=== PATIENT | female | born 1940 | race Hispanic/Latino ===

== ENCOUNTER 2016-05-02 21:09 | Inpatient (IN) | payer OTHER, BC ==
[2016-05-02 22:18] VITALS: BMI 21.4
[2016-05-02] MEDS ORDERED: Morphine 2 mg/ml ISec IVP PRN (22:56)
[2016-05-03] MEDS ORDERED: Benzocaine 20% Cream(7 gm) MT PRN
[2016-05-03] MEDS ORDERED: Influenza Vaccine 45 MCG/0.5 ml IM ONE (00:33)
[2016-05-03] MEDS ORDERED: Pneumococcal 23-Valent Vaccine IM ONE (00:33)
[2016-05-03] MEDS ORDERED: cefTRIAXone 1 gm 100 ML IVPB SCH ×2 (06:00→10:00)
[2016-05-03] MEDS: Pantoprazole 40 mg EC Tab PO SCH (06:00)
[2016-05-03 06:32] LABS: HEMATOCRIT 28.9 % (36.0-48.0); MEAN CELL VOLUME 84.8 fL (80.0-105.0); MEAN CORPUSCULAR HEMOGLOBIN 27.9 pg (25.0-35.0); MEAN CORPUSCULAR HGB CONC 32.9 g/dl (31.0-37.0); MEAN PLATELET VOLUME 11.2 fl (7.0-11.0)
[2016-05-03 06:46] LABS: ALB/GLOB RATIO 1.2 (1.1-1.8); ALKALINE PHOSPHATASE 51 U/L (38-133); ALT/SGPT 77 U/L (7-56); AST/SGOT 43 U/L (15-39); BILIRUBIN,TOTAL 0.4 mg/dL (0.2-1.3); BLOOD UREA NITROGEN 15 mg/dL (7-21); CALCIUM 8.1 mg/dL (8.4-10.5); CARBON DIOXIDE 31 mmol/L (21-33); CHLORIDE 104 mmol/L (98-107); GFR AFRICAN-AMERICAN > 60; GLUCOSE,RANDOM 85 mg/dL (70-110); SODIUM 140 mmol/L (132-148); TOTAL PROTEIN 5.5 g/dL (5.8-8.3)
[2016-05-03 06:48] LABS: WHITE BLOOD COUNT 2.1 10^3/ul (4.5-11.0)
[2016-05-03] MEDS ORDERED: Pantoprazole 40 mg EC Tab PO SCH (07:30)
[2016-05-03] MEDS: Potassium & Sodium Phosphate PO SCH ×2 (09:38→18:36)
--- NOTE | 2016-05-03 10:10 | PN ---
DATE: 05/03/2016 Shortly, patient is a 75-year-old female with history of depression and anxiety. Most like ly, patient also has history of bipolar disorder type 2. The patient was admitted on the medical mary jo or for evaluation of altered mental status, most likely delirium stage due to urinary tract infection . Psych consult was called because patient has history of mental illness. The patient is on psychot ropic medication as well as change in mental status. The patient was seen by this typewriter tester for the pas t week. The patient is improving significantly. The patient was transferred to TCU. The patient wa s seen today at the morning time. The patient presented to be alert and oriented. The patient said that she is doing a little bit better. The patient complained of pain in her gums. The patient repo rted that pain affects her mood. At the same time, patient's mental status is improving. The patien t is not having any hallucinations or delusions or any aggressive or agitated behavior. The patient is alert and oriented, pleasant, cooperative. Fair eye contact. Speech was underproductive, low vol ume. Most likely, it is related to the pain in her mouth. The patient reported transient feeling of anxiety. The patient reported to have fair enough sleep at the nighttime. VITAL SIGNS: Reviewed. Temperature 99.4, pulse is , blood pressure 120/72, respirations 18, ox ygen saturation is 92%. MEDICATIONS: Reviewed. The patient is on Xanax 0.5 mg 3 times a day, Orajel, Lotrisone, ciprofloxac in, Duragesic patch, folic acid, Neurontin 300 mg 3 times a day, Paxil 40 mg daily, Neutra-Phos, pred nisone, Seroquel 150 mg at the nighttime, it will be discontinued and Seroquel 200 mg at the nighttim e will be started. MENTAL STATUS EXAMINATION: The patient presented to be alert and oriented. Fair eye contact. Speec h was underproductive, low volume. Mood described as "I'm feeling a little bit better". Affect was constricted, mood congruent. Thought process was coherent, goal directed. Thought content: The pat ient denied visual, auditory, or tactile hallucinations. Denied paranoid ideations. The patient den ied thoughts of harming herself or others, denied intent or plan. Insight and judgment are improving . Impulses are well controlled. IMPRESSION: Most likely, patient has underlying bipolar disorder. The patient has history of anxiet y, depression, history of multiple hospitalizations into the psychiatric inpatient unit in the past. The patient has multiple medical issues, urinary tract infection, multifactorial delirium, which is clearing. PLAN: This typewriter tester had prolonged conversation with Dr. Mi today, discussed treatment plan. The patient might benefit from increased dose of Seroquel at the nighttime, 200 mg will be given as a mo od stabilizer. The rest of the medication needs to be continued. The patient will be seen by Dr. Jarod comer over this weekend. The patient needs to be seen by psychiatrist in the community. This typewriter tester w ill be providing patient information of Dr. Shahid's office. The patient has history of being seen by him in the past or Dr. Tan versus [facility]. This typewriter tester will followup and advise accordingly. Over the weekend, Dr. Paredes will be covering. Meanwhile, continue current shaniqua gement. The patient is improving. Thank you very much for letting me participate in care of your patient. Carrie Patton MD cc: [id number] TT: 05/03/2016 10:09:09 Confirmation # [id number] Dictation # [id number] en
[2016-05-03] MEDS: Clotrimazole/Betamethasone Cream(15 gm) TOP SCH ×2 (15:53→18:34)
[2016-05-04] MEDS: Pantoprazole 40 mg EC Tab PO SCH (05:35)
[2016-05-04 09:26] LABS: HEMATOCRIT 32.9 % (36.0-48.0); MEAN CELL VOLUME 86.1 fL (80.0-105.0); MEAN CORPUSCULAR HEMOGLOBIN 27.7 pg (25.0-35.0); MEAN CORPUSCULAR HGB CONC 32.2 g/dl (31.0-37.0); MEAN PLATELET VOLUME 11.3 fl (7.0-11.0); RED CELL DISTRIBUTION WIDTH 15.9 % (11.5-14.5)
[2016-05-04 09:48] LABS: ALB/GLOB RATIO 1.2 (1.1-1.8); ALKALINE PHOSPHATASE 47 U/L (38-133); ALT/SGPT 63 U/L (7-56); AST/SGOT 38 U/L (15-39); BILIRUBIN,TOTAL 0.6 mg/dL (0.2-1.3); BLOOD UREA NITROGEN 13 mg/dL (7-21); CALCIUM 8.7 mg/dL (8.4-10.5); CARBON DIOXIDE 30 mmol/L (21-33); CHLORIDE 104 mmol/L (98-107); GFR AFRICAN-AMERICAN > 60; GLUCOSE,RANDOM 73 mg/dL (70-110); POTASSIUM 4.3 mmol/L (3.6-5.0); SODIUM 143 mmol/L (132-148); TOTAL PROTEIN 5.9 g/dL (5.8-8.3)
[2016-05-04] MEDS: Clotrimazole/Betamethasone Cream(15 gm) TOP SCH ×2 (09:56→17:45)
[2016-05-04] MEDS: Potassium & Sodium Phosphate PO SCH ×2 (09:57→17:47)
[2016-05-04 10:09] LABS: WHITE BLOOD COUNT 2.5 10^3/ul (4.5-11.0)
--- NOTE | 2016-05-04 10:42 | CON ---
DATE: 05/04/2016 The patient is a 75-year-old female with a history of depression and anxiety, rule out bipo lar disorder type 2, who was being seen by psychiatry because of her history of mental illness as wel l as mental status changes. Dr. Patton has been following up with patient and I have reviewed h er notes which indicates the patient's mental status has been improving significantly as patient is m ore oriented and she is not having hallucinations, delusions or any aggressive or agitated behavior. I met with patient at bedside and I agree with Dr. Patton's observation. The patient is quite alert, oriented, pleasant and cooperative. Her eye contact is fair and while her speech was noted un derproductive yesterday, she is communicative with me today. The patient with almost a bright affect reports that she is feeling "good" and she reports that her mood symptoms are "under control." She reports that she is sleeping well and she denies any issues with her medications. She denies any tutu e effects. As noted, she is quite oriented to current location, circumstances, month and year. Aracely cates that is hopeful and that she "wants to get home." She denies hallucinations. In fact, delusio ns were not elicited from the patient during our interview. Her responses are consistent and relevan t to questioning. Her insight and judgment appear to be improving nicely as well as her impulse cont rol. VITAL SIGNS AND LABORATORIES: Reviewed by this provider. MEDICATIONS: Reviewed AND relevant psychiatric medications include Xanax 0.5 mg p.o. t.i.d., Neuront in 300 mg p.o. t.i.d., Paxil 40 mg p.o. daily and Seroquel 150 mg p.o. at bedtime. IMPRESSION: As noted above, the patient with history of anxiety and depression with rule out bipolar 2 disorder. The patient's multifactorial delirium is improving nicely. RECOMMENDATIONS: The patient is improving and denies any current issues and with notable improved be havior as well as orientation, this provider will not change current medications at this time. There are no acute indications to deal with at this time. The patient also reports that she is tolerating the Seroquel and that she slept well. This medication was supposed to be increased to 200 mg at bed time, however, the patient slept well and appears to be in good control at 150 mg at this time. Appa rently, it was not increased yesterday. We will continue 150 mg at this time. Psychiatry will nupur nue to follow up with patient every other day to monitor her mental status and her tolerance to medic ations; however, please feel free to request a more eminent followup if there are any changes to the patient's functioning regarding to mood and orientation. Garry Paredes MD cc: [id number] TT: 05/04/2016 10:41:26 Confirmation # [id number] Dictation # [id number] tn
--- NOTE | 2016-05-04 16:20 | PN ---
DATE: 05/04/2016 The patient is feeling much better. She has better appetite, her mouth and gums pain improved. She is able to tolerate diet. She denies any diarrhea. PHYSICAL EXAMINATION: VITALS: Stable. Temperature 98.1, pulse 57, blood pressure 122/53, respiratory rate 18. She is comfortable, alert, awake, oriented. HEAD: Normocephalic, atraumatic. Oral mucosa is moist. NECK: Supple. LUNGS: With decreased breath sounds. No rales or crackles. HEART: With regular rhythm and rate. ABDOMEN: Soft, nontender, nondistended. EXTREMITIES: With no edema, but with severe arthritis deformities of both hands. DIAGNOSTIC TESTS: CBC improved with WBC 2.5 trending up, hemoglobin 10.6, hematocrit 32.9, and platelet count 199,000. Chemistry is normal. ASSESSMENT: 1. Urinary tract infection with Escherichia coli in urine culture, improved. 2. Pancytopenia, improved. 3. History of metabolic encephalopathy, resolved. 4. Probably bipolar disorder with anxiety. 5. Rheumatoid arthritis. PLAN OF TREATMENT: The patient will be maintained on present medication. Will finish Cipro at 250 mg twice a day for next 2-3 days. Continue her psychiatric medications, Seroquel and Paxil. Will monitor her CBC for stability of WBC and platelet count. Consuelo Powers MD cc: [id number] TT: 05/04/2016 16:19:58 Confirmation # [id number] Dictation # [id number] jn MTDD
[2016-05-05] MEDS: Pantoprazole 40 mg EC Tab PO SCH (06:12)
[2016-05-05] MEDS: Clotrimazole/Betamethasone Cream(15 gm) TOP SCH ×2 (09:17→17:57)
[2016-05-05] MEDS: Potassium & Sodium Phosphate PO SCH ×2 (09:19→17:59)
--- NOTE | 2016-05-05 13:22 | PN ---
DATE: 05/05/2016 The patient is in transitional care unit. She is feeling much better. She denies any diarrhea or abdominal pain. She continues with some mild discomfort related to her gum disease. PHYSICAL EXAMINATION: VITAL SIGNS: Stable. The patient is afebrile. Temperature 98.8, pulse 60, blood pressure 102/50, respiratory rate 18. GENERAL: She is comfortable in reclining chair, alert, awake, oriented. HEENT: Head is normocephalic, atraumatic. Oral mucosa with some erythema and swelling of the gums. NECK: Supple. LUNGS: Clear to auscultation. HEART: Regular rhythm and rate. ABDOMEN: Soft, nontender, nondistended. EXTREMITIES: With no edema. LABORATORY DATA: The patient had refused blood test this morning. ASSESSMENT: 1. Urinary tract infection with Escherichia coli in urine culture, currently on Cipro to finish treatment for the next 2 days. 2. Pancytopenia, improved. 3. History of metabolic encephalopathy, possibly underlying early dementia, clinically improved. 4. Rheumatoid arthritis. 5. Probably bipolar disorder with anxiety. 6. Deconditioning. PLAN OF TREATMENT: We will continue Cipro for the next 2 days, CBC for tomorrow. Continue physical therapy. Continue close monitoring of patient's condition. Consuelo Powers MD cc: [id number] TT: 05/05/2016 13:22:39 Confirmation # [id number] Dictation # [id number] jn MTDD
[2016-05-06] MEDS: Pantoprazole 40 mg EC Tab PO SCH (05:44)
[2016-05-06 06:53] LABS: HEMATOCRIT 30.7 % (36.0-48.0); MEAN CELL VOLUME 87.2 fL (80.0-105.0); MEAN CORPUSCULAR HEMOGLOBIN 28.4 pg (25.0-35.0); MEAN CORPUSCULAR HGB CONC 32.6 g/dl (31.0-37.0); MEAN PLATELET VOLUME 10.7 fl (7.0-11.0); WHITE BLOOD COUNT 3.7 10^3/ul (4.5-11.0)
--- NOTE | 2016-05-06 08:29 | PN ---
DATE: 05/03/2016 The patient is 75-year-old female who was transferred from regular floor to transitional care unit for further therapy. The patient was admitted at first for altered mental status, multifactorial, with metabolic encephalopathy, acute delirium state from medication overdose. She improved during hospitalization. She was found to have urinary tract infection, treated with IV Rocephin. The patient was transferred to transitional care unit for physical therapy and continuation of IV antibiotic therapy. She is feeling better. She complains of mouth burning and difficulty of chewing, but she denies any abdominal pain or heartburn. She complains of multiple joint pains, and anxiety. She was restarted on her psychiatric medications, which included Paxil and Seroquel. She was found to have a low platelet count and progressive leukopenia during hospitalization. PHYSICAL EXAMINATION: VITALS: Stable. Her temperature was 99.5, pulse 54, blood pressure 125/54, and respiratory rate 20. Her oxygen saturation is 95% on room air. The patient was seen at bedside. She was lying in a reclining chair, alert, awake, oriented. HEAD: Normocephalic, atraumatic. Oral mucosa was slightly dry, erythema of tongue and of throat. No oral thrush. NECK: Supple. LUNGS: Clear to auscultation. HEART: Regular rhythm and rate. ABDOMEN: Soft, nontender, nondistended. EXTREMITIES: With no edema. Multiple degenerative changes of small joints noticed. LABORATORY TESTS: This morning, CBC with leukopenia with WBC 2.1, hemoglobin 9.5, hematocrit 28.9, and platelet count 115,000. Her chemistry showed normal electrolytes with sodium 140, potassium 4. Her renal function study is stabilized with BUN 15, creatinine 0.6. Her bilirubin was normal, but liver enzymes slightly elevated with AST 43 and ALT 77. Her vitamin B12 level is normal. ASSESSMENT: 1. Urinary tract infection with Escherichia coli in urine culture. 2. Diarrhea. Must rule out pseudomembranous colitis. 3. Pancytopenia. 4. Depression with anxiety, possibly bipolar disorder. 5. Rheumatoid arthritis. 6. Oral candidiasis. PLAN OF TREATMENT: Case was discussed with psychiatrist, who helps me to follow the patient in TCU. Will continue current treatment. The patient was maintained on Rocephin for 6 days due to diarrhea. Will stop Rocephin and switched to oral Cipro as instructed by infectious disease specialist. Will obtain consultation with compressor technician due to progressive pancytopenia. However , platelet count improved since we stopped heparin. Will continue Mycelex oral troches for oral candidiasis. We will repeat stool for C. diff to rule out pseudomembranous colitis. Consuelo Powers MD cc: [id number] TT: 05/03/2016 20:40:08 Confirmation # [id number] Dictation # [id number] jn MTDD
[2016-05-06] MEDS: Clotrimazole/Betamethasone Cream(15 gm) TOP SCH ×2 (10:01→18:03)
[2016-05-06] MEDS: Potassium & Sodium Phosphate PO SCH ×2 (10:02→18:04)
[2016-05-06] MEDS ORDERED: Albuterol-Ipratrop 3 mg / 0.5 (3 ml) UD IH PRN (22:32)
--- NOTE | 2016-05-06 23:16 | PN ---
DATE: 05/06/2016 DATE OF SERVICE: 05/06/2016 SUBJECTIVE: The patient remains in transitional care unit. She is feeling much better. She denies any abdominal pain. She engages in her physical therapy. PHYSICAL EXAMINATION: VITAL SIGNS: Stable. Temperature 98.5, pulse 54, blood pressure 114/54 and respiratory rate 18. GENERAL: She is comfortable in bed, alert, awake, oriented. HEENT: Head is normocephalic, atraumatic. Oral mucosa is moist. NECK: Supple. LUNGS: Clear to auscultation. HEART: Regular rhythm and rate. ABDOMEN: Soft, nontender, nondistended. EXTREMITIES: With no edema. DIAGNOSTIC TESTS: CBC this morning showed improved WBC at 3.7. Her hemoglobin is stable at 10, hematocrit 30.7 and platelet count 365,000. Her stool for Clostridium difficile is negative. ASSESSMENT: 1. History of metabolic encephalopathy, clinically resolved. 2. Pancytopenia, improved. 3. History of urinary tract infection, improved. 4. Rheumatoid arthritis. 5. Deconditioning. PLAN OF TREATMENT: We will continue physical therapy and present current medications. We will monitor her electrolytes and CBC. Consuelo Powers MD cc: [id number] TT: 05/06/2016 23:15:40 Confirmation # [id number] Dictation # [id number] tn MTDD
[2016-05-07] MEDS: Pantoprazole 40 mg EC Tab PO SCH (05:55)
[2016-05-07] MEDS: Clotrimazole/Betamethasone Cream(15 gm) TOP SCH ×2 (09:12→18:03)
[2016-05-07] MEDS: Potassium & Sodium Phosphate PO SCH ×2 (09:13→18:05)
[2016-05-07 09:44] LABS: HEMATOCRIT 32.1 % (36.0-48.0); MEAN CORPUSCULAR HEMOGLOBIN 27.9 pg (25.0-35.0); MEAN CORPUSCULAR HGB CONC 32.1 g/dl (31.0-37.0); MEAN PLATELET VOLUME 10.2 fl (7.0-11.0); RED CELL DISTRIBUTION WIDTH 15.8 % (11.5-14.5); WHITE BLOOD COUNT 4.5 10^3/ul (4.5-11.0)
[2016-05-08] MEDS: Pantoprazole 40 mg EC Tab PO SCH (05:36)
[2016-05-08] MEDS ORDERED: Albuterol-Ipratrop 3 mg / 0.5 (3 ml) UD IH STA (08:26)
[2016-05-08] MEDS: Clotrimazole/Betamethasone Cream(15 gm) TOP SCH ×3 (10:00→17:11)
[2016-05-08] MEDS ORDERED: MethylPREDNISolone 40 mg Vial IVP SCH (10:00)
[2016-05-08] MEDS: Potassium & Sodium Phosphate PO SCH ×2 (10:39→17:11)
[2016-05-08] MEDS: MethylPREDNISolone 40 mg Vial IVP SCH ×2 (13:00→22:01)
--- NOTE | 2016-05-08 13:20 | PN ---
DATE: 05/08/2016 The patient remains in transitional care unit. She is complaining of more chest congestion and cough for the past 2 days. She denies any fever. She also has intermittent diarrhea but denies any abdominal pain. Her appetite is good. PHYSICAL EXAMINATION: VITAL SIGNS: Stable. Temperature is 98.4, pulse 64, blood pressure 100/52, respiratory rate 18. Oxygen saturation is 95% on room air. GENERAL: She is comfortable, alert, awake, oriented. HEENT: Head is normocephalic, atraumatic. Eyes with pupils reactive to light. Oral mucosa is moist. There is slight erythema of lower gums. NECK: Supple. LUNGS: With bilateral scattered wheezing. HEART: With regular rhythm and rate. ABDOMEN: Soft, nontender, nondistended. EXTREMITIES: With no edema. LABORATORY DATA: Her last CBC from 05/07 showed improved WBC at 4.5. Hemoglobin 10.3, hematocrit 32.1. ASSESSMENT: 1. History of metabolic encephalopathy, clinically resolved. 2. New exacerbation of chronic obstructive pulmonary disease. 3. History of pancytopenia, improved WBC and stable hemoglobin level. 4. History of urinary tract infection, improved. 5. Rheumatoid arthritis. 6. Deconditioning. PLAN OF TREATMENT: We will continue physical therapy. We will start nebulizer treatment every 6 hours and switch oral prednisone to Solu-Medrol twice a day. Repeat CBC and electrolytes for stability. Consuelo Powers MD cc: [id number] TT: 05/08/2016 13:20:41 Confirmation # [id number] Dictation # [id number] sn MTDD
[2016-05-08] MEDS: Albuterol-Ipratrop 3 mg / 0.5 (3 ml) UD IH SCH ×2 (13:26→20:48)
[2016-05-09] MEDS: Albuterol-Ipratrop 3 mg / 0.5 (3 ml) UD IH SCH ×4 (01:37→21:03)
[2016-05-09] MEDS: Pantoprazole 40 mg EC Tab PO SCH (06:13)
[2016-05-09] MEDS: MethylPREDNISolone 40 mg Vial IVP SCH ×2 (06:25→18:03)
[2016-05-09 07:20] LABS: HEMATOCRIT 31.9 % (36.0-48.0); MEAN CELL VOLUME 86.2 fL (80.0-105.0); MEAN CORPUSCULAR HEMOGLOBIN 27.8 pg (25.0-35.0); MEAN CORPUSCULAR HGB CONC 32.3 g/dl (31.0-37.0); MEAN PLATELET VOLUME 10.1 fl (7.0-11.0); RED CELL DISTRIBUTION WIDTH 16.2 % (11.5-14.5)
[2016-05-09 07:41] LABS: ALB/GLOB RATIO 1.2 (1.1-1.8); ALKALINE PHOSPHATASE 63 U/L (38-133); ALT/SGPT 84 U/L (7-56); AST/SGOT 67 U/L (15-39); BILIRUBIN,TOTAL 0.3 mg/dL (0.2-1.3); BLOOD UREA NITROGEN 20 mg/dL (7-21); CALCIUM 8.4 mg/dL (8.4-10.5); CARBON DIOXIDE 29 mmol/L (21-33); CHLORIDE 99 mmol/L (95-110); GFR AFRICAN-AMERICAN > 60; GLUCOSE,RANDOM 130 mg/dL (70-110); POTASSIUM 4.7 mmol/L (3.6-5.0); SODIUM 135 mmol/L (132-148); TOTAL PROTEIN 6.4 g/dL (5.8-8.3)
--- NOTE | 2016-05-09 09:58 | PN ---
DATE: 05/09/2016 The patient remains in transitional care unit undergoing physical therapy for deconditioning. The patient developed cough and chest congestion 2 days ago. She had fever yesterday with T-max 102. She is feeling better today. She is afebrile this morning. She states that her cough improved. She denies any shortness of breath. She still has loose stool. Two sets of stool for Clostridium difficile test were negative. PHYSICAL EXAMINATION: This morning: VITAL SIGNS: Temperature 98.7, her blood pressure 95/51, pulse 79, and respiratory rate 18. GENERAL: She is comfortable in bed, alert, awake, oriented. HEENT: Head is normocephalic, atraumatic. Oral mucosa is moist. NECK: Supple. LUNGS: With scattered wheezing, improved since yesterday. HEART: Regular rhythm and rate. ABDOMEN: Soft, nontender, nondistended. EXTREMITIES: With no edema. DIAGNOSTIC TESTS: CBC with WBC 5, hemoglobin 10.3 stable, hematocrit 31.9, and platelet count ____. Chemistry with normal electrolytes, normal renal function with BUN 20, creatinine 0.7. Her liver enzymes are slightly elevated. AST 67, ALT 84. ASSESSMENT: 1. Cough, fever, probably secondary to exacerbation of chronic obstructive pulmonary disease. Must rule out pneumonia. 2. Persistent diarrhea with negative Clostridium difficile and stools x 2. 3. Elevated liver enzymes. 4. Anemia of chronic disease. 5. Rheumatoid arthritis. 6. Deconditioning. PLAN OF TREATMENT: Will order a chest x-ray for evaluation to rule out any signs of new infiltration. We will start Levaquin 500 mg daily. Will continue Solu-Medrol and nebulizer treatment. I will ask infectious disease specialist in consult for help to find the source of the recent fever. The patient will be maintained on her chronic medications. We will monitor her WBC and H and H. We will continue physical therapy. Consuelo Powers MD cc: [id number] TT: 05/09/2016 09:58:05 Confirmation # [id number] Dictation # [id number] yeison ABRAMS
[2016-05-09] MEDS: Vancomycin 1gm in NS 250ml 250 ML IVPB SCH ×2 (10:35→21:35)
[2016-05-09] MEDS: levoFLOXacin 500 MG TAB PO SCH (10:35)
[2016-05-09] MEDS: Meropenem 1 GM in Sodium Chloride 0.9% 100 ML IVPB SCH ×3 (10:37→21:32)
[2016-05-09] MEDS: Clotrimazole/Betamethasone Cream(15 gm) TOP SCH ×2 (10:38→18:02)
[2016-05-09] MEDS: Potassium & Sodium Phosphate PO SCH ×2 (10:47→18:03)
--- NOTE | 2016-05-09 12:01 | PN ---
DATE: 05/09/2016 The patient is a 75-year-old female with history of depression, anxiety, most likely the pa brigette also has history of bipolar type 2. The patient was admitted on the medical floor for evaluati on of altered mental status. Right now, patient is currently in TCU. This telegraphic typewriter repairer increased the dose of Seroquel for mood stabilization as well as to clear delirium. All medications were resumed. The patient has not followed up for the past 4 days because of increased consultation and busy services, but this telegraphic typewriter repairer had prolonged conversation with Dr. Mi today. The patient is improving from t he mental standpoint, but she has a lot of medical issues as well. The patient was seen and examined . The patient presented to be alert. The patient said that she is not depressed. The patient repor urbano to have a good night's sleep. At the same time, the patient has diarrhea and has a lot of medica l issues. Discussed with the nursing staff. The patient does not have any behavioral issues, compli ant with the medications and treatment plan. The patient was working with physical therapy as well. VITAL SIGNS: Reviewed. Temperature is 98.7, pulse is 63, blood pressure 98/56, respirations 20, oxy gen saturation 94. MEDICATIONS: Reviewed. Tylenol, DuoNeb, Xanax 0.5 mg 3 times a day. Also, the patient is on Paxil 40 mg daily as well as Seroquel 150 mg at the nighttime scheduled. The patient is also on antibiotic s and multiple medical medications. Please see medical team notes for more detailed history. LABORATORY DATA: Reviewed. Most recent was from today. Hemoglobin and hematocrit are low. Salon Manager ry also reviewed. AST and ALT are 67 and 84. The rest is within normal limits. Reports were review ed. Chest x-ray was done. There is no result back yet. MENTAL STATUS EXAMINATION: The patient appears to be alert and oriented. Delirium was clearing. Int ermittent eye contact. Speech was underproductive. Mood described as "I'm okay." Affect was constr icted, mood congruent. Thought process was coherent and goal directed. Thought content: The patien t denied visual, auditory, or tactile hallucinations. Denied paranoid ideation. Denied thoughts of harming herself or others, denied intent or plan. Insight and judgment are improving. Impulses are well controlled. IMPRESSION: From this telegraphic typewriter repairer's standpoint, the patient was admitted for altered mental status, which could be related to multifactorial delirium and it is clearing. The patient also has underlying bip olar disorder versus depression and anxiety. From the medical standpoint, the patient has multiple m edical issues including cough, COPD, rule out pneumonia. The patient has diarrhea, negative C. diff. The patient has elevated liver enzymes and anemia, rebound with arthritis, deconditioning. The pat ient is on antibiotics now. Please see Dr. Mi's note for more detailed information. PLAN: Continue current management. Continue Paxil, continue Xanax, and continue on Seroquel on curr ent doses. The patient was educated that she needs to follow up with outpatient psychiatrist. [facility] Meanwhile, the patient is improving from the mental standpoi nt. From the medical standpoint, she is on TCU and she is having physical therapy and she is on anti biotics. This telegraphic typewriter repairer will sign off. It was advised to the medical team to give a call to this write r in case mental status will be worsening or in case of depression or in case of suicidal ideation. Thank you very much for letting me participate in care of your patient. Carrie Patton MD cc: [id number] TT: 05/09/2016 12:00:23 Confirmation # [id number] Dictation # [id number] yeison
--- NOTE | 2016-05-09 15:34 | RAD ---
PROCEDURE: CHEST RADIOGRAPH, 1 VIEW HISTORY: fever COMPARISON: 04/27/2016 FINDINGS: LUNGS: No pulmonary infiltrate. 1.4 cm nodular opacity at left lung base. Recommend upright PA and lateral chest radiography for further evaluation. PLEURA: No pneumothorax or pleural fluid seen. CARDIOVASCULAR: Normal. OSSEOUS STRUCTURES: No significant abnormalities. VISUALIZED UPPER ABDOMEN: Normal. OTHER FINDINGS: None. IMPRESSION: 1.4 cm nodular opacity at left base. Further evaluation is advised. Recommend standing PA and lateral chest radiography if clinically feasible. Alternatively, evaluation with computed tomography would be recommended.
--- NOTE | 2016-05-09 16:59 | CP.PCM.CON ---
History of Present Illness - History of Present Illness History of Present Illness: 75 year old female with PMH of bilateral hospital-acquired pneumonia, Rheumatoid arthritis on Humira and Methotrexate, COPD, depression, anxiety, coronary artery disease was initially admitted in [facility] because of E. coli UTI. She has been transferred to [facility] for continued medical therapy and physical rehabilitation. She had been doing well, however, she developed fever last night while doing physical therapy. She felt warm but did not have chills or rigors. She denies cough or rhinorrhea, no sore throat, no leg pain, no dysuria or hematuria, no chest pain, no headache or dizziness, no abdominal pain, no dysphagia or odynophagia, no chest palpitations, no abodminal cramps. Infectious diseases consult is requested to further evaluate and manage. Review of Systems - Review of Systems All systems: reviewed and no additional remarkable complaints except (as per HPI ) Past Patient History - Infectious Disease Hx of Infectious Diseases: None - Tetanus Immunizations Tetanus Immunization: Unknown - Past Medical History & Family History Past Medical History?: Yes Past Family History: Reviewed and not pertinent - Past Social History Smoking Status: Heavy Smoker > 10 Cigarettes Daily Alcohol: None Drugs: Denies Home Situation {Lives}: With Family - CARDIAC Hx Hypertension: No - PULMONARY Hx Chronic Obstructive Pulmonary Disease (COPD): Yes - NEUROLOGICAL HX Cerebrovascular Accident: No Hx Seizures: No - HEENT Hx HEENT Problems: No - RENAL Hx Chronic Kidney Disease: No - ENDOCRINE/METABOLIC Hx Endocrine Disorders: No - HEMATOLOGICAL/ONCOLOGICAL Hx Cancer: No - INTEGUMENTARY Hx Dermatological Problems: No - MUSCULOSKELETAL/RHEUMATOLOGICAL Hx Arthritis: Yes (Hip OA) Hx Rheumatoid Arthritis: Yes - GASTROINTESTINAL Hx Gastrointestinal Disorders: Yes (CONSTIPATION,DIARRHEA COLON POLYPS) - GENITOURINARY/GYNECOLOGICAL Hx Genitourinary Disorders: Yes (UTI,URINARY FREQUENCY) Hx Reproductive Disorders: No - PSYCHIATRIC Hx Psychophysiologic Disorder: Yes Hx Anxiety: Yes Hx Depression: Yes Hx Emotional Abuse: No Hx Hallucinations: No Hx Panic Symptoms: No Hx Post Traumatic Stress Disorder: No Hx Psychosis: No Hx Physical Abuse: No Hx Schizophrenia: No Hx Sexual Abuse: No Hx Substance Use: No - SURGICAL HISTORY Hx Orthopedic Surgery: Yes (TOTAL HIP REPLACEMENT right 2010 [facility]) - ANESTHESIA Hx Anesthesia: Yes Hx Anesthesia Reactions: No Hx Malignant Hyperthermia: No Meds Allergies/Adverse Reactions: Allergies Allergy/AdvReac Type Severity Reaction Status Date / Time codeine Allergy ANAPHYLAXIS Verified 05/03/16 00:22 - Medications Medications: Current Medications Acetaminophen (Tylenol 325mg Tab) 650 mg PO Q4H PRN PRN Reason: Fever >100.4 F Last Admin: 05/08/16 14:31 Dose: 650 mg Albuterol/Ipratropium (Duoneb 3 Mg/0.5 Mg (3 Ml) Ud) 3 ml IH [id number] [facility], 1928–1983 Last Admin: 05/09/16 07:21 Dose: 3 ml Alprazolam (Xanax) 0.5 mg PO TID [facility], [facility] PRN Reason: Protocol Last Admin: 05/08/16 18:32 Dose: 0.5 mg Benzocaine (Orajel Pm Maximum Strength) 0 gm MT Q2 PRN PRN Reason: Pain, moderate (4-7) Betamethasone/Clotrimazole (Lotrisone) 1 gm TOP BID [facility], [facility] Last Admin: 05/08/16 17:11 Dose: 1 applic Clotrimazole (Mycelex Kevon) 10 mg MT 5XD [facility], [facility] Last Admin: 05/09/16 06:13 Dose: 10 mg Fentanyl (Duragesic) 1 patch TD Q72H [facility], [facility] Last Admin: 05/06/16 22:26 Dose: 1 patch Folic Acid (Folic Acid) 1 mg PO DAILY [facility], [facility] Last Admin: 05/08/16 10:38 Dose: 1 mg Gabapentin (Neurontin) 300 mg PO TID [facility], [facility]1983 PRN Reason: Protocol Last Admin: 05/08/16 17:11 Dose: 300 mg Levofloxacin (Levaquin) 500 mg PO DAILY [facility] Methylprednisolone (Solu-Medrol) 30 mg IVP 0600,1800 [facility], [facility] Last Admin: 05/09/16 06:25 Dose: 30 mg Pantoprazole Sodium (Protonix Ec Tab) 40 mg PO 0630 [facility] Last Admin: 05/09/16 06:13 Dose: 40 mg Paroxetine HCl (Paxil) 40 mg PO DAILY [facility] Last Admin: 05/08/16 10:39 Dose: 40 mg Potassium Phos/Sodium Phos (Neutra-Phos) 1 pkt PO BID [facility], [facility] Last Admin: 05/08/16 17:11 Dose: 1 pkt Quetiapine Fumarate (Seroquel) 150 mg PO HS [facility] PRN Reason: Protocol Last Admin: 05/08/16 21:18 Dose: 150 mg Physical Exam - Constitutional Appears: Non-toxic, No Acute Distress - Head Exam Head Exam: NORMAL INSPECTION - ENT Exam ENT Exam: Mucous Membranes Moist - Neck Exam Neck exam: Negative for: Lymphadenopathy, Meningismus - Respiratory Exam Respiratory Exam: Decreased Breath Sounds - Cardiovascular Exam Cardiovascular Exam: +S1, +S2 - GI/Abdominal Exam GI & Abdominal Exam: Soft. absent: Tenderness - Extremities Exam Extremities exam: Negative for: calf tenderness, pedal edema, tenderness Results - Vital Signs Recent Vital Signs: Last Vital Signs Temp 98.7 F 05/08/16 18:37 Pulse 79 05/08/16 15:58 Resp 18 05/08/16 15:58 BP 95/51 L 05/08/16 15:58 Pulse Ox 94 L 05/08/16 15:58 - Labs Result Diagrams: 05/09/16 06:30 05/09/16 06:30 Labs: Laboratory Results - last 24 hr 05/09/16 06:30 WBC 5.0 RBC 3.70 Hgb 10.3 L Hct 31.9 L MCV 86.2 MCH 27.8 MCHC 32.3 RDW 16.2 H Plt Count 674 H MPV 10.1 Sodium 135 Potassium 4.7 Chloride 99 Carbon Dioxide 29 Anion Gap 12 BUN 20 Creatinine 0.7 Est GFR ( Amer) > 60 Est GFR (Non-Af Amer) > 60 Random Glucose 130 H Calcium 8.4 Total Bilirubin 0.3 AST 67 H ALT 84 H Alkaline Phosphatase 63 Total Protein 6.4 Albumin 3.5 Globulin 2.9 Albumin/Globulin Ratio 1.2 Assessment & Plan - Assessment and Plan (Free Text) Plan: Assessment Systemic Inflammatory Response Syndrome, R/O sepsis, source to be determined urinary tract infection with E. coli, clinically improving Acute encephalopathy, resolved, probably from withdrawal from pain meds, clinically improved; the patient currently does not have evidence of sepsis (no fever, no WBC elevation, no SIRS) history of bilateral hospital-acquired pneumonia Rheumatoid arthritis on Humira and Methotrexate COPD depression anxiety coronary artery disease Plan changed antibiotics to Vancomycin and Merrem pending blood, urine cx, CXR, PCT Will continue to monitor clinically and trend fever curve
[2016-05-09 21:08] LABS: URINE BILIRUBIN NEGATIVE (NEGATIVE); URINE BLOOD TRACE-INTACT (NEGATIVE); URINE GLUCOSE (UA) NEGATIVE (NEGATIVE); URINE KETONE TRACE mg/dL (NEGATIVE); URINE LEUKOCYTE ESTERASE NEGATIVE Leu/uL (NEGATIVE); URINE PROTEIN NEGATIVE mg/dL (<30 mg/dL); URINE UROBILINOGEN 0.2 E.U./dL (<1 E.U./dL)
[2016-05-09 21:11] LABS: URINE APPEARANCE CLEAR (CLEAR); URINE COLOR YELLOW (YELLOW)
[2016-05-09 21:18] LABS: URINE BACTERIA FEW (NEG); URINE WBC 0 - 2 /hpf (0-6)
[2016-05-10] MEDS: Albuterol-Ipratrop 3 mg / 0.5 (3 ml) UD IH SCH ×4 (02:38→20:25)
[2016-05-10] MEDS: Meropenem 1 GM in Sodium Chloride 0.9% 100 ML IVPB SCH ×3 (05:54→22:17)
[2016-05-10] MEDS: Pantoprazole 40 mg EC Tab PO SCH (05:56)
[2016-05-10] MEDS: Vancomycin 1gm in NS 250ml 250 ML IVPB SCH ×2 (05:56→17:44)
[2016-05-10] MEDS: MethylPREDNISolone 40 mg Vial IVP SCH ×2 (06:01→17:42)
[2016-05-10 07:14] LABS: MEAN CELL VOLUME 86.7 fL (80.0-105.0); MEAN CORPUSCULAR HEMOGLOBIN 28.3 pg (25.0-35.0); MEAN CORPUSCULAR HGB CONC 32.7 g/dl (31.0-37.0); MEAN PLATELET VOLUME 10.2 fl (7.0-11.0); RED CELL DISTRIBUTION WIDTH 16.5 % (11.5-14.5); WHITE BLOOD COUNT 11.8 10^3/ul (4.5-11.0)
[2016-05-10 07:31] LABS: ALB/GLOB RATIO 1.2 (1.1-1.8); ALKALINE PHOSPHATASE 54 U/L (38-133); ALT/SGPT 74 U/L (7-56); AST/SGOT 55 U/L (15-39); BILIRUBIN,TOTAL 0.3 mg/dL (0.2-1.3); BLOOD UREA NITROGEN 19 mg/dL (7-21); CALCIUM 8.1 mg/dL (8.4-10.5); CARBON DIOXIDE 30 mmol/L (21-33); CHLORIDE 103 mmol/L (98-107); GFR AFRICAN-AMERICAN > 60; GLUCOSE,RANDOM 111 mg/dL (70-110); POTASSIUM 4.6 mmol/L (3.6-5.0); SODIUM 139 mmol/L (132-148); TOTAL PROTEIN 6.3 g/dL (5.8-8.3)
[2016-05-10] MEDS: levoFLOXacin 500 MG TAB PO SCH (10:10)
[2016-05-10] MEDS: Clotrimazole/Betamethasone Cream(15 gm) TOP SCH ×2 (10:11→17:40)
[2016-05-10] MEDS: Potassium & Sodium Phosphate PO SCH ×2 (10:12→17:41)
--- NOTE | 2016-05-10 19:03 | PN ---
DATE: 05/10/2016 SUBJECTIVE: The patient remains in TCU. The patient developed a fever 3 days ago associated with chest congestion and cough. She is treated with vancomycin and Merrem. Today she is doing much better. She denies any chest congestion, cough, abdominal pain. Her bowel movement improved. She denies significant diarrhea. PHYSICAL EXAMINATION: VITAL SIGNS: Stable. Temperature is 98.6, blood pressure 118/58, pulse 63 and respiratory rate 18. Her oxygen saturation runs in lower 90s. GENERAL: She is comfortable, sitting in the chair, alert, awake, oriented. HEENT: Head is normocephalic, atraumatic. Oral mucosa is moist. NECK: Supple. LUNGS: Clear to auscultation. HEART: Regular rhythm and rate. ABDOMEN: Soft, nontender, nondistended. EXTREMITIES: With no edema. LABORATORY DATA: Blood cultures preliminary after 24 hours are negative. Stool culture is negative for C. diff antigen and toxin. Chest x-ray done yesterday showed 1.4 cm opacity in the left base, but no significant infiltrations. ASSESSMENT: 1. History of fever with exacerbation of chronic obstructive pulmonary disease. Chest x-ray negative for pneumonia. 2. Elevated liver enzymes. 3. Chronic anemia due to chronic disease with thrombocytosis, probably reactive. 4. Rheumatoid arthritis. 5. Deconditioning. 6. History of metabolic encephalopathy completely resolved. 7. Bipolar disorder. PLAN OF TREATMENT: She will be maintained on IV Merrem and vancomycin for next 24 hours. We will consider changing to p.o. antibiotics if ID specialist agrees. We will monitor closely for any increase of temperature. We will follow blood cultures and urine cultures. The patient will continue physical therapy. I will decrease Solu-Medrol dose and bronchodilators dose. Consuelo Powers MD cc: [id number] TT: 05/10/2016 19:02:50 Confirmation # [id number] Dictation # [id number] MTDD
--- NOTE | 2016-05-10 19:25 | CP.PCM.PN ---
Subjective - Date & Time of Evaluation Date of Evaluation: 05/10/16 Time of Evaluation: 10:40 - Subjective Subjective: Comfortable in bed, not in distress, no fevers currently, no cough, no dysuria, no diarrhea. Objective - Vital Signs/Intake and Output Vital Signs (last 24 hours): Temp Pulse Resp BP Pulse Ox 98.2 F 66 18 100/47 L 93 L 05/09/16 16:00 05/09/16 16:00 05/09/16 16:00 05/09/16 16:00 05/09/16 16:00 - Medications Medications: Current Medications Acetaminophen (Tylenol 325mg Tab) 650 mg PO Q4H PRN PRN Reason: Fever >100.4 F Last Admin: 05/08/16 14:31 Dose: 650 mg Albuterol/Ipratropium (Duoneb 3 Mg/0.5 Mg (3 Ml) Ud) 3 ml IH [id number] [facility] Last Admin: 05/10/16 07:27 Dose: 3 ml Alprazolam (Xanax) 0.5 mg PO TID RENE PRN Reason: Protocol Last Admin: 05/09/16 18:10 Dose: 0.5 mg Benzocaine (Orajel Pm Maximum Strength) 0 gm MT Q2 PRN PRN Reason: Pain, moderate (4-7) Betamethasone/Clotrimazole (Lotrisone) 1 gm TOP BID [facility] Last Admin: 05/09/16 18:02 Dose: Not Given Clotrimazole (Mycelex Kevon) 10 mg MT 5XD [facility] Last Admin: 05/10/16 05:55 Dose: 10 mg Folic Acid (Folic Acid) 1 mg PO DAILY [facility] Last Admin: 05/09/16 10:38 Dose: 1 mg Gabapentin (Neurontin) 300 mg PO TID RENE PRN Reason: Protocol Last Admin: 05/09/16 18:03 Dose: 300 mg Meropenem 1 gm/ Sodium (Chloride) 100 mls @ 100 mls/hr IVPB Q8 RENE PRN Reason: Protocol Stop: 05/16/16 09:46 Last Admin: 05/10/16 05:54 Dose: 100 mls/hr Vancomycin HCl (Vancomycin 1gm) 250 mls @ 167 mls/hr IVPB 0600,1800 RENE PRN Reason: Protocol Last Admin: 05/10/16 05:56 Dose: 167 mls/hr Levofloxacin (Levaquin) 500 mg PO DAILY [facility] Last Admin: 05/09/16 10:35 Dose: 500 mg Methylprednisolone (Solu-Medrol) 30 mg IVP 0600,1800 [facility] Last Admin: 05/10/16 06:01 Dose: 30 mg Pantoprazole Sodium (Protonix Ec Tab) 40 mg PO 0630 [facility] Last Admin: 05/10/16 05:56 Dose: 40 mg Paroxetine HCl (Paxil) 40 mg PO DAILY [facility] Last Admin: 05/09/16 10:36 Dose: 40 mg Potassium Phos/Sodium Phos (Neutra-Phos) 1 pkt PO BID [facility] Last Admin: 05/09/16 18:03 Dose: 1 pkt Quetiapine Fumarate (Seroquel) 150 mg PO HS [facility] PRN Reason: Protocol Last Admin: 05/09/16 21:33 Dose: 150 mg - Labs Labs: 05/10/16 06:30 05/10/16 06:30 - Constitutional Appears: Non-toxic, No Acute Distress - Head Exam Head Exam: NORMAL INSPECTION - ENT Exam ENT Exam: Mucous Membranes Moist - Neck Exam Neck Exam: absent: Lymphadenopathy, Meningismus - Respiratory Exam Respiratory Exam: Decreased Breath Sounds - Cardiovascular Exam Cardiovascular Exam: +S1, +S2 - GI/Abdominal Exam GI & Abdominal Exam: Soft. absent: Tenderness Assessment and Plan - Assessment and Plan (Free Text) Plan: Assessment Systemic Inflammatory Response Syndrome, R/O sepsis, so far no source identified ; patient with COPD exacerbation urinary tract infection with E. coli, clinically improving Acute encephalopathy, resolved, probably from withdrawal from pain meds, clinically improved; the patient currently does not have evidence of sepsis (no fever, no WBC elevation, no SIRS) history of bilateral hospital-acquired pneumonia Rheumatoid arthritis on Humira and Methotrexate COPD depression anxiety coronary artery disease Plan blood cx negative - will d/c IV Vancomycin; will continue Merrem (day 2) pending final blood cx results and urine cx; reviewed CXR which showed a pulmonary nodule but no infiltrates; if cultures continue to be negative tomorrow, will d/c antibiotics Will continue to monitor clinically
[2016-05-11] MEDS: MethylPREDNISolone 40 mg Vial IVP SCH ×2 (05:50→17:30)
[2016-05-11] MEDS: Meropenem 1 GM in Sodium Chloride 0.9% 100 ML IVPB SCH (05:50)
[2016-05-11] MEDS: Pantoprazole 40 mg EC Tab PO SCH (05:52)
[2016-05-11 06:39] LABS: HEMATOCRIT 30.8 % (36.0-48.0); MEAN CELL VOLUME 87.3 fL (80.0-105.0); MEAN CORPUSCULAR HGB CONC 32.1 g/dl (31.0-37.0); MEAN PLATELET VOLUME 10.4 fl (7.0-11.0); RED CELL DISTRIBUTION WIDTH 16.6 % (11.5-14.5); WHITE BLOOD COUNT 15.5 10^3/ul (4.5-11.0)
[2016-05-11 07:14] LABS: ALB/GLOB RATIO 1.1 (1.1-1.8); ALKALINE PHOSPHATASE 54 U/L (38-133); ALT/SGPT 68 U/L (7-56); AST/SGOT 64 U/L (15-39); BILIRUBIN,TOTAL 0.3 mg/dL (0.2-1.3); BLOOD UREA NITROGEN 21 mg/dL (7-21); CALCIUM 8.3 mg/dL (8.4-10.5); CARBON DIOXIDE 31 mmol/L (21-33); CHLORIDE 103 mmol/L (98-107); GFR AFRICAN-AMERICAN > 60; GLUCOSE,RANDOM 102 mg/dL (70-110); POTASSIUM 4.2 mmol/L (3.6-5.0); SODIUM 139 mmol/L (132-148); TOTAL PROTEIN 6.1 g/dL (5.8-8.3)
[2016-05-11] MEDS: Albuterol-Ipratrop 3 mg / 0.5 (3 ml) UD IH SCH ×3 (07:15→23:47)
[2016-05-11] MEDS: Clotrimazole/Betamethasone Cream(15 gm) TOP SCH ×2 (11:02→17:29)
[2016-05-11] MEDS: Potassium & Sodium Phosphate PO SCH ×2 (11:03→17:30)
--- NOTE | 2016-05-11 11:07 | PN ---
DATE: 05/11/2016 The patient is in bed, was seen earlier today, in 313. No fevers, no chills. An uneventful night. PHYSICAL EXAMINATION: VITAL SIGNS: Temperature is 98, blood pressure is 123/50, respiratory rate of 18. HEENT: Unremarkable. NECK: Supple. LUNGS: Have decreased breath sounds. HEART: Normal S1, S2. ABDOMEN: Soft, nontender. LABORATORY DATA: The patient's platelets have gone up to 900,000 and the white count is 15,000. Lou mistries reveal the BUN of 21, creatinine of 0.8, procalcitonin 0.05. Her urinalysis as noted. Micr obiology reveals the blood cultures are no growth. Stool C. diff antigen and toxin negative and urin e cultures are no growth. Review of the orders reveals the patient to be on meropenem and patient is also on Solu-Medrol. ASSESSMENT AND PLAN: A 75-year-old female, seen earlier today in transitional care, in room 313, wit h systemic inflammatory response syndrome with chronic obstructive pulmonary disease, urinary tract i nfection, Escherichia coli improving, and cultures negative. We will discontinue the meropenem. Paul e discussed with Dr. Martinez regarding the high platelets, thrombocytosis. Hematology evaluation and GI evaluation are recommended. Chai Acosta MD cc: [id number] TT: 05/11/2016 11:06:34 Confirmation # [id number] Dictation # [id number] ln
--- NOTE | 2016-05-11 11:21 | CON ---
DATE: 05/11/2016 LOCATION: Currently located in TCU 313, bed 2. REASON FOR HEMATOLOGY CONSULTATION: Leukocytosis, thrombocytosis. HISTORY: This is a 75-year-old female with past medical history significant for bilateral healthcare -acquired pneumonia, rheumatoid arthritis, on Humira and methotrexate, COPD, depression, anxiety, cor onary artery disease; who was initially admitted to [facility] because of Escherichia col i urinary tract infection. She has been since treated and transferred to [email or web address] for continued medical therapy and physical rehabilitation. She had been doing well overall; however, developed overnight a fever, on 05/01/2016, while doing physical therapy. She denied complaints, at that time, of chills or rigors or other complaints related to her urinary tract infection, including dysuria or hematuria. She also denied dizziness, chest pain, or trouble breathing. She was restarted on antibiotic therapy consisting of vancomycin and meropenem, pending her Infectious Disease workup, and states that, sinc e that time, her symptoms related to her urinary tract infection have been improving. She has remain ed afebrile with a T-max of 102.4, which was documented on 05/08/2016. Currently, her white blood vitaliy l count has increased to 15.5 with a platelet count of 798,000, hemoglobin is at 9.9, hematocrit is 3 0.8. Initially, on presentation, she did have a leukopenia. White blood cell count was 2.1 and plat elet count was 115,000. Otherwise, no complaints. She denies complaints of bruising or spontaneous bleeding. PAST MEDICAL HISTORY: As per HPI. SOCIAL HISTORY: Current tobacco smoker. Denies alcohol or drugs. SURGICAL HISTORY: History of total hip replacement in 2010. ALLERGIES: THE PATIENT IS ALLERGIC TO CODEINE WITH A DOCUMENTED REACTION OF ANAPHYLAXIS. REVIEW OF SYSTEMS: As per HPI. PHYSICAL EXAMINATION: VITAL SIGNS: Temperature 98.6 currently, blood pressure 111/58, respiratory rate 18, heart rate 75. GENERAL: AAO x 3, currently resting in bed comfortably. HEENT: Normocephalic, atraumatic. Pupils reactive bilaterally. LUNGS: Clear to auscultation bilaterally. CARDIOVASCULAR: Regular rate and rhythm. S1, S2 normal. ABDOMEN: Soft, nontender, nondistended. No evidence of abdominal or epigastric pain. EXTREMITIES: No cyanosis, clubbing, or edema. SKIN: Multiple ecchymotic lesions noted to bilateral upper extremities at areas of phlebotomy and IV placement. Otherwise, there is no evidence of ecchymosis on skin elsewhere. LYMPHATICS: Exam is normal. No evidence of lymphadenopathy. LABORATORY DATA: White blood cell count of 15.5, hemoglobin 9.9, hematocrit 30.8, MCV 87.3, platelet count 798. Chemistries: Sodium 139, potassium 4.2, chloride 103, bicarbonate 31, BUN 21, creatinin e 0.8, glucose 102, calcium 8.3, AST 64, ALT 68, total bilirubin 0.3, albumin 3.2. ASSESSMENT AND PLAN: In summary, this is a 75-year-old female with multiple medical comorbidities, w ith the current admission of Escherichia coli urinary tract infection/urosepsis, currently on IV anti biotic therapy and responding well. Most recently had a fever, on 05/08, and has been treated approp riately without documented evidence of fever, and clinically and symptomatically improving. Hematology consultation was placed for leukocytosis as well as thrombocytosis. Looking at her trend during her admission to this documented increase in her white blood cell count and platelet count, mo st likely etiology is a reactive/inflammatory/infectious process causing a leukocytosis and thrombocy tosis. The patient does not have a history of this previously and there is no history of familial bl ood disorders as well. I have sent for appropriate testing in this setting, due to elevated platelet count; including peripheral flow cytometry as well as ESR and CRP, which most likely will be elevate d. Based on these results, a JAK2 mutation could be checked to rule out a primary bone marrow proce ss, such as essential thrombocytosis; however, this is very low suspicion at this time. We will cont inue to monitor and follow this patient with you. Thank you kindly for this consultation. Dimitry Minor MD cc: [id number] TT: 05/11/2016 11:20:23 Confirmation # [id number] Dictation # [id number] ln
[2016-05-11 12:49] LABS: IRON 114 ug/dL (45-180)
[2016-05-12] MEDS: MethylPREDNISolone 40 mg Vial IVP SCH ×2 (05:33→17:36)
[2016-05-12] MEDS: Pantoprazole 40 mg EC Tab PO SCH (05:33)
[2016-05-12] MEDS: Albuterol-Ipratrop 3 mg / 0.5 (3 ml) UD IH SCH ×4 (08:02→18:26)
[2016-05-12 09:23] LABS: ADD MANUAL DIFF? NO
[2016-05-12 09:26] LABS: BASO # 0.34 K/mm3 (0.0-2.0); BASO % 2.1 % (0.0-3.0); EOS % 0.1 % (1.5-5.0); GRAN # 8.64 (1.4-6.5); GRAN % 52.6 % (50.0-68.0); HEMATOCRIT 31.6 % (36.0-48.0); LYMPH # 4.6 (1.2-3.4); LYMPH % 28.2 % (22.0-35.0); MEAN CELL VOLUME 87.3 fL (80.0-105.0); MEAN CORPUSCULAR HEMOGLOBIN 28.5 pg (25.0-35.0); MEAN CORPUSCULAR HGB CONC 32.6 g/dl (31.0-37.0); MEAN PLATELET VOLUME 10.3 fl (7.0-11.0); MONO # 2.8 (0.1-0.6); PLATELET COUNT 838 10^3/uL (120.0-450.0); RED CELL DISTRIBUTION WIDTH 16.3 % (11.5-14.5); WHITE BLOOD COUNT 16.4 10^3/ul (4.5-11.0)
[2016-05-12] MEDS: Clotrimazole/Betamethasone Cream(15 gm) TOP SCH ×2 (09:39→17:34)
[2016-05-12] MEDS: Potassium & Sodium Phosphate PO SCH ×2 (09:40→17:36)
--- NOTE | 2016-05-12 12:54 | PN ---
DATE: 05/12/2016 The patient is in bed in no acute distress, nontoxic. PHYSICAL EXAMINATION: VITAL SIGNS: Temperature is 98, blood pressure is 130/70, respiratory rate of 20. HEENT: Unremarkable. NECK: Supple. LUNGS: Have decreased breath sounds. HEART: Normal S1, S2. ABDOMEN: Soft, nontender. LABORATORY DATA: Reveals a white count of 16,400, hemoglobin is 10, platelets of 838. Chemistries a re noted. Procalcitonin was 0.05. Urinalysis is noted. Microbiology reveals the blood cultures are negative. Urine cultures are negative. Stool for C. diff antigen and toxin are both negative. Rev iew of the orders reveals the patient to have no antibiotics. ASSESSMENT AND PLAN: A 75-year-old female who was seen earlier today in room 313 with systemic infla mmatory response syndrome, chronic obstructive lung disease, urinary tract infection with Escherichia coli, culture is negative, now off of antibiotics. The patient does have thrombocytosis with the la st platelets of 838,000 this morning. Awaiting for GI and workup because of anemia. May be reactive thrombocytosis, although it is slightly too high for GI pathology versus primary platelet disorder, awaiting for hematology evaluation. Case discussed with PMD. Chai Acosta MD cc: [id number] TT: 05/12/2016 12:53:00 Confirmation # [id number] Dictation # [id number] mónica
[2016-05-12 16:45] VITALS: RESP 18
--- NOTE | 2016-05-12 23:58 | PN ---
DATE: 05/11/2016 The patient is in the transitional care unit. She has been followed by Dr. Mi for recuperating from cystitis and recently developed leukocytosis and, on this day of our first visit, we noted an e levated platelet count inconsistent with her baseline. She is in transitional care unit recuperating from a bout of pneumonia with comorbid rheumatoid arthritis, COPD, chronic nicotine habit, depressio n and chronic pain syndrome. She had been doing well and was transferred to the transitional care it for followup and rehabilitation with her ambulation. While in the unit, she has been visited by Michelle Acosta for an elevated white blood cell count and fever perhaps relative to pneumonia and also underwent a psychiatric consultation. Today, she is in good spirits and she would be looking forwar d to going home. She has been participating with the staff as far as we are told and had some concer ns with some bouts of diarrhea the day before, but not today when we are visiting. As discussed with Dr. Mi, we are monitoring her CBC as she had been leukopenic on admission and, with this curre nt set of fever 2 days ago, she had exacerbation of COPD, a chest x-ray that was not consistent with pneumonia, elevated liver enzymes and she has been in the past on DMARD for her rheumatoid arthritis, believed to be Humira. Her metabolic encephalopathy precipitated by the use of her multiple pain me dications seems to have now resolved. Currently, she is on Merrem and vancomycin and we are waiting for ID visit to price changer. PHYSICAL EXAMINATION: GENERAL: Today showed the patient in fair spirits and very cooperative with the exam. Ambulatory wi th assistance. VITAL SIGNS: Temperature of 98.7 with no noted peaks the day before, pulse rate of 62, blood pressur e of 123/59 and an O2 sat of 94, fair for her known COPD. She is alert and oriented to all spheres t vik. Her face appears to be slightly garcia faced. HEENT: Pupils are equally round and reactive to light and accommodation. Extraocular movement is in tact. She is in no respiratory distress. Neck is supple as much as it could be from her rheumatoid arthritis. Oral mucosa is moist. No lesions. HEART: Regular in rhythm. No S3 appreciated. LUNGS: Have diminished breath sounds. No rales or rhonchi. ABDOMEN: Soft, bowel sounds are present. She had no complaints of diarrhea. EXTREMITIES: Have full range of motion. Severe rheumatoid arthritis deformities in the hands. LABORATORY DATA: Blood cultures remain negative. Sputum culture is pending. The morning CBC showed an elevated platelet count in the 800s on repeat. ASSESSMENT: 1. Elevated platelet count. Etiology to be determined. 2. Recent fever, now defervesced. 3. Chronic obstructive pulmonary disease with a negative chest x-ray. 4. Rheumatoid arthritis. 5. Deconditioning. 6. Bipolar disorder. 7. Recent metabolic encephalopathy. 8. Chronic pain syndrome. PLAN OF CARE: Request review from databases software consultant hematology/oncology group, Dr. Montes De Oca. Will ask staff to request visit. Made patient aware of the recent findings and will follow. Nathan Martinez MD cc: [phone] TT: 05/12/2016 23:57:36 Confirmation # [id number] Dictation # [id number] jamila
[2016-05-13] MEDS: Albuterol-Ipratrop 3 mg / 0.5 (3 ml) UD IH SCH ×3 (02:00→20:27)
[2016-05-13] MEDS: Pantoprazole 40 mg EC Tab PO SCH (05:30)
[2016-05-13] MEDS: MethylPREDNISolone 40 mg Vial IVP SCH (05:33)
[2016-05-13 05:55] LABS: HEMATOCRIT 32.3 % (36.0-48.0); MEAN CELL VOLUME 86.6 fL (80.0-105.0); MEAN CORPUSCULAR HEMOGLOBIN 27.6 pg (25.0-35.0); MEAN CORPUSCULAR HGB CONC 31.9 g/dl (31.0-37.0); MEAN PLATELET VOLUME 9.9 fl (7.0-11.0); RED CELL DISTRIBUTION WIDTH 16.1 % (11.5-14.5); WHITE BLOOD COUNT 18.2 10^3/ul (4.5-11.0)
[2016-05-13 05:58] LABS: ADD MANUAL DIFF? YES
[2016-05-13 05:59] LABS: PLATELET COUNT 785 10^3/uL (120.0-450.0)
[2016-05-13 06:53] LABS: ATYPICAL LYMPHOCYTE 1 % (0.0-0.0); BAND 2 % (0-2); NEUTROPHIL 50 % (50.0-70.0)
[2016-05-13 06:54] LABS: ANISOCYTOSIS SLIGHT; METAMYELOCYTE 2 %; MYELOCYTE 5 %; PLATELET ESTIMATE HIGH (NORMAL)
--- NOTE | 2016-05-13 07:45 | PN ---
DATE: 05/13/2016 The patient in transitional care unit for evaluation and treatment of her deconditioning secondary to rheumatoid arthritis and a recent bout of UTI as an acute patient. She had been doing well until re cently, developed temperature and was placed on antibiotics with little change in her results and yes terday began trending up on her platelets peaking at 800,000. Heme consult appreciated. We spoke wi th Dr. Minor, who felt the process was reactive in nature and did not think there was any immediate n eed for treatment. The patient was made aware of the findings and was reassured this morning. She i s anxious to go home and we are not certain on the discharge day from TCU, but perhaps it is close to her exit time. She has progressed enough and her pain seems to be well controlled and once the tren ding of the platelets is more stable, we can probably consider to discharge. Seen this morning at he r bedside. She offers no major complaints. The most recent stool for C. difficile had been negative and she is having occasional runny bowel movements. PHYSICAL EXAMINATION: GENERAL: She offers no major complaints today. Probably related to her chronic use of steroids, the re is a slight puffiness or garcia facies noted. She is alert and oriented and very able to give us he r symptoms and respond appropriately. HEENT: Pupils are equally round and reactive to light and accommodation. Extraocular movement is in tact. Oral mucosa has no thrush. She has no hoarseness. NECK: Supple, no cervical lymphadenopathy, no bruit. LUNGS: Diminished breath sounds, but no rhonchi, no wheeze. She has no desire for smoking. ABDOMEN: Soft, bowel sounds are present, nontender. No rebound, no masses. EXTREMITIES: Have full range of motion. VITAL SIGNS: Blood pressure stable. Temperature 98.2, a pulse rate of 57, a blood pressure 131/72, respiratory rate of 20, and O2 sat is 95% on room air. SKIN: Turgor is adequate. She has been consuming most of her meals. This morning, WBCs remain elevated 16 4, hemoglobin 10.3, hematocrit of 31 and a platelet count of 83 8,000, felt to be reactive by the business risk consultant boat detailer. Recommendations from Dr. Acosta was to continue off antibiotics and he does recommend outpatient workup for GI because of her underlying anemia with thrombocytosis, by him also is felt to be reactiv e. She has been on her chronic anxiolytic medication and gabapentin used around the clock with the resum ption of her paroxetine and on low dose methylprednisolone. Seroquel was added to her nighttime tunde men and she really does seem to be doing excellent. IMPRESSION: 1. Deconditioning, post urinary tract infection. 2. Thrombocytosis, reactive in nature. 3. Rheumatoid arthritis, severe and on Humira or other disease-modifying antirheumatic drug. 4. Bipolar disorder. 5. Chronic pain syndrome. 6. 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 7. Nicotine free now during this whole admission. PLAN OF CARE: Discussed with the patient that perhaps it is best to have someone manage her medicati on when she goes home rather than she be on her own management. The staff has not noted use of the p ain medication very regularly since the transfer to the transitional care unit. The patient is looki ng forward to going home. It will all depend on the recommendations from the consultants and up to Michelle Mi's decision tomorrow. Nathan Martinez MD cc: [id number] TT: 05/13/2016 07:44:51 Confirmation # [id number] Dictation # [id number]
[2016-05-13] MEDS: Potassium & Sodium Phosphate PO SCH ×2 (09:33→17:18)
[2016-05-13] MEDS: Clotrimazole/Betamethasone Cream(15 gm) TOP SCH ×2 (09:33→17:19)
--- NOTE | 2016-05-13 15:53 | CP.PCM.PN ---
Subjective - Date & Time of Evaluation Date of Evaluation: 05/13/16 Time of Evaluation: 10:55 - Subjective Subjective: Comfortable, still has loose bowel movement but not watery, no fevers overnight. Objective - Vital Signs/Intake and Output Vital Signs (last 24 hours): Temp Pulse Resp BP Pulse Ox 98.1 F 55 L 18 114/66 96 05/13/16 06:00 05/13/16 06:00 05/13/16 06:00 05/13/16 06:00 05/13/16 06:00 - Medications Medications: Current Medications Acetaminophen (Tylenol 325mg Tab) 650 mg PO Q4H PRN PRN Reason: Fever >100.4 F Last Admin: 05/08/16 14:31 Dose: 650 mg Albuterol/Ipratropium (Duoneb 3 Mg/0.5 Mg (3 Ml) Ud) 3 ml IH Q8H [facility] Last Admin: 05/13/16 07:14 Dose: 3 ml Alprazolam (Xanax) 0.5 mg PO TID [facility] PRN Reason: Protocol Last Admin: 05/13/16 09:32 Dose: 0.5 mg Aspirin (Aspirin) 325 mg PO DAILY [facility] Benzocaine (Orajel Pm Maximum Strength) 0 gm MT Q2 PRN PRN Reason: Pain, moderate (4-7) Betamethasone/Clotrimazole (Lotrisone) 1 gm TOP BID [facility] Last Admin: 05/13/16 09:33 Dose: Not Given Clotrimazole (Mycelex Kevon) 10 mg MT 5XD [facility] Last Admin: 05/13/16 09:33 Dose: 10 mg Folic Acid (Folic Acid) 1 mg PO DAILY [facility] Last Admin: 05/13/16 09:32 Dose: 1 mg Gabapentin (Neurontin) 300 mg PO TID [facility] PRN Reason: Protocol Last Admin: 05/13/16 09:32 Dose: 300 mg Pantoprazole Sodium (Protonix Ec Tab) 40 mg PO 0630 [facility] Last Admin: 05/13/16 05:30 Dose: 40 mg Paroxetine HCl (Paxil) 40 mg PO DAILY [facility] Last Admin: 05/13/16 09:33 Dose: 40 mg Potassium Phos/Sodium Phos (Neutra-Phos) 1 pkt PO BID [facility] Last Admin: 05/13/16 09:33 Dose: 1 pkt Prednisone (Prednisone Tab) 20 mg PO DAILY [facility] Quetiapine Fumarate (Seroquel) 150 mg PO HS [facility] PRN Reason: Protocol Last Admin: 05/12/16 21:19 Dose: 150 mg - Labs Labs: 05/13/16 05:45 05/11/16 06:33 - Constitutional Appears: Non-toxic, No Acute Distress - ENT Exam ENT Exam: Mucous Membranes Moist - Neck Exam Neck Exam: absent: Lymphadenopathy, Meningismus - Respiratory Exam Respiratory Exam: Decreased Breath Sounds - Cardiovascular Exam Cardiovascular Exam: +S1, +S2 - GI/Abdominal Exam GI & Abdominal Exam: Soft. absent: Tenderness Assessment and Plan - Assessment and Plan (Free Text) Plan: Assessment Systemic Inflammatory Response Syndrome, R/O sepsis, so far no source identified ; patient with COPD exacerbation and leukocytosis may be from systemic steroid use urinary tract infection with E. coli, clinically improving Acute encephalopathy, resolved, probably from withdrawal from pain meds, clinically improved; the patient currently does not have evidence of sepsis (no fever, no WBC elevation, no SIRS) history of bilateral hospital-acquired pneumonia Rheumatoid arthritis on Humira and Methotrexate COPD depression anxiety coronary artery disease Plan continue to monitor off antibiotics since she is at risk for hospital-acquired infections; stool for Cdiff done today is negative Follow up Hematology evaluation of leukocytosis and thrombocytopenia
[2016-05-14] MEDS: Albuterol-Ipratrop 3 mg / 0.5 (3 ml) UD IH SCH ×2 (02:13→07:28)
[2016-05-14] MEDS: Pantoprazole 40 mg EC Tab PO SCH (05:32)
[2016-05-14 06:05] VITALS: O2SAT 97
[2016-05-14 10:10] LABS: HEMATOCRIT 34.8 % (36.0-48.0); MEAN CELL VOLUME 85.7 fL (80.0-105.0); MEAN CORPUSCULAR HEMOGLOBIN 27.6 pg (25.0-35.0); MEAN CORPUSCULAR HGB CONC 32.2 g/dl (31.0-37.0); MEAN PLATELET VOLUME 9.7 fl (7.0-11.0); RED CELL DISTRIBUTION WIDTH 16.1 % (11.5-14.5); WHITE BLOOD COUNT 18.3 10^3/ul (4.5-11.0)
[2016-05-14 11:22] VITALS: BP 112/67; PULSE 94; TEMP 98.4
--- NOTE | 2016-05-14 21:14 | DS ---
DIAGNOSES. 1. Deconditioning due to chronic medical conditions. 2. Exacerbation of chronic obstructive lung disease. 3. Anemia of chronic disease with reactive thrombocytosis. 4. Rheumatoid arthritis. 5. Bipolar disorder. 6. History of metabolic encephalopathy, clinically resolved. 7. Severe osteoarthritis. The patient is a 75-year-old female who was admitted to the transitional care unit due to decondition ing and continuity of IV antibiotics for a urinary tract infection. Her condition improved during ho spitalization, but she developed an episode of fever with increase of cough and chest congestion. Th e patient was treated with IV antibiotics, bronchodilator and IV steroids, Solu-Medrol. Her laborato ry tests during this admission showed an increase of platelet count. Car Salesperson was called for chaim carson. Thrombocytosis is felt to be reactive. Currently, her platelet count is trending down. PHYSICAL EXAMINATION ON DISCHARGE: VITAL SIGNS: Stable, temperature 98.7, pulse 51, blood pressure 120/60, respiratory rate 18. GENERAL: Alert, awake, oriented. HEENT: Head is normocephalic, atraumatic. Eyes with pupils reactive to light. No jaundice. Oral m ucosa is moist. No oral lesions. NECK: Supple. No neck masses. LUNGS: Clear to auscultation. HEART: Regular rhythm and rate. ABDOMEN: Soft, nontender, nondistended. EXTREMITIES: With no edema. Severe degenerative changes with joint deformity noted of both hands an d feet. DIAGNOSTIC DATA: Diagnostic tests from yesterday, stable hemoglobin 10.3, hematocrit 32.3. Her WBC remains elevated at 18.2 and platelet count 785. PLAN OF TREATMENT: The patient will be discharged home today on a heart healthy diet. The patient w ill be maintained on prednisone 10 mg daily, simvastatin 20 mg daily, gabapentin 300 mg 3 times a day , Xanax 0.5 mg 3 times a day, Seroquel 150 mg at night and Paxil 40 mg daily. She will be maintained on aspirin daily, folic acid 1 mg daily and Tylenol for pain as needed. She was advised to avoid an y pain medication. The patient was advised to follow up with primary care doctor in 2 days. Consuelorashid Powers MD cc: [id number] TT: 05/14/2016 21:13:38 dn
== END 2016-05-14 14:25 | disposition home or self-care (01) | DRG 190 ==
LOC: TRCU 21:09
PROVIDERS: ADMIT Family Medicine; ATTEND Family Medicine
PROC: F07Z9FZ Gait Training/Functional Ambulation Treatment using Assistive, Adaptive, Supportive or Protective Equipment (ICD-10-PCS; principal; 2016-05-03)
PROC: F07M6ZZ Therapeutic Exercise Treatment of Musculoskeletal System - Whole Body (ICD-10-PCS; 2016-05-03)
PROC: F08Z4ZZ Home Management Treatment (ICD-10-PCS; 2016-05-03)
DX: J44.1 Chronic obstructive pulmonary disease with (acute) exacerbation (principal); J18.9 Pneumonia, unspecified organism; G92 Toxic encephalopathy; D61.818 Other pancytopenia; B37.0 Candidal stomatitis; N39.0 Urinary tract infection, site not specified; F03.90 Unspecified dementia, unspecified severity, without behavioral disturbance, psychotic disturbance, mood disturbance, and anxiety; F31.81 Bipolar II disorder; D63.8 Anemia in other chronic diseases classified elsewhere; J44.0 Chronic obstructive pulmonary disease with (acute) lower respiratory infection; B96.20 Unspecified Escherichia coli [E. coli] as the cause of diseases classified elsewhere; D47.3 Essential (hemorrhagic) thrombocythemia; F17.200 Nicotine dependence, unspecified, uncomplicated; F41.8 Other specified anxiety disorders; G89.4 Chronic pain syndrome; I25.10 Atherosclerotic heart disease of native coronary artery without angina pectoris; M06.9 Rheumatoid arthritis, unspecified; M16.10 Unilateral primary osteoarthritis, unspecified hip; R41.0 Disorientation, unspecified; Z79.899 Other long term (current) drug therapy; Z86.010 Personal history of colon polyps; Z87.440 Personal history of urinary (tract) infections; Z96.641 Presence of right artificial hip joint; D72.819 Decreased white blood cell count, unspecified; Z88.5 Allergy status to narcotic agent; Z87.892 Personal history of anaphylaxis; R53.81 Other malaise; R74.8 Abnormal levels of other serum enzymes; T50.995A Adverse effect of other drugs, medicaments and biological substances, initial encounter

== ENCOUNTER 2016-06-30 06:05 | Emergency (ER) | payer MEDICARE, BC ==
[2016-06-30 06:18] VITALS: TEMP 98.5
[2016-06-30 06:22] VITALS: BMI 23.3
--- NOTE | 2016-06-30 06:42 | ED PDOC ---
Arrival/HPI - General Chief Complaint: Shortness Of Breath Time Seen by Provider: 06/30/16 06:16 Historian: Patient - History of Present Illness Narrative History of Present Illness (Text): 06/30/16 06:38 Angela Hernandez is a 75 year old female, whose past medical history includes rheumatoid arthritis, hyperlipidemia, COPD, anxiety, and depression, who presents to the emergency department complaining of shortness of breath since waking up this morning. Patient reports associated mild productive cough and chest discomfort after coughing. The patient denies any fever, chills, abdominal pain, nausea, vomiting, diarrhea, urinary symptoms, back pain, neck pain, headache, dizziness, or any other complaints. Time/Duration: Other (this morning) Symptom Onset: Gradual Symptom Course: Unchanged Activities at Onset: Rest, Light Context: Home Past Medical History - Provider Review Nursing Documentation Reviewed: Yes - Past History Past History: Non-Contributing - Infectious Disease Hx of Infectious Diseases: None - Tetanus Immunization Tetanus Immunization: Unknown - Reproductive Menopause: Yes - Past Medical History Past Medical History: No Previous - Cardiac Hx Hypertension: No - Pulmonary Hx Chronic Obstructive Pulmonary Disease (COPD): Yes - Neurological HX Cerebrovascular Accident: No Hx Seizures: No - HEENT Hx HEENT Disorder: No - Renal Hx Renal Disorder: No - Endocrine/Metabolic Hx Endocrine Disorders: No - Hematological/Oncological Hx Cancer: No - Integumentary Hx Dermatological Disorder: No - Musculoskeletal/Rheumatological Hx Arthritis: Yes (Hip OA) Hx Back Pain: Yes Hx Rheumatoid Arthritis: Yes - Gastrointestinal Hx Gastrointestinal Disorders: Yes (CONSTIPATION,DIARRHEA COLON POLYPS) - Genitourinary/Gynecological Hx Genitourinary Disorders: Yes (UTI,URINARY FREQUENCY) Hx Reproductive Disorders: No - Psychiatric Hx Psychophysiologic Disorder: Yes Hx Anxiety: Yes Hx Depression: Yes Hx Emotional Abuse: No Hx Hallucinations: No Hx Panic Disorder: No Hx Post Traumatic Stress Disorder: No Hx Psychosis: No Hx Physical Abuse: No Hx Schizophrenia: No Hx Sexual Abuse: No Hx Substance Use: No - Surgical History Hx Orthopedic Surgery: Yes (TOTAL HIP REPLACEMENT right 2010 [facility]) - Anesthesia Hx Anesthesia: Yes Hx Anesthesia Reactions: No Hx Malignant Hyperthermia: No - Suicidal Assessment Feels Threatened In Home Enviroment: No Family/Social History - Physician Review Nursing Documentation Reviewed: Yes Family/Social History: No Known Family HX Smoking Status: Heavy Smoker > 10 Cigarettes Daily Hx Alcohol Use: No Hx Substance Use: No Hx Substance Use Treatment: No Allergies/Home Meds Allergies/Adverse Reactions: Allergies codeine Allergy (Verified 05/03/16 00:22) ANAPHYLAXIS Home Medications: Home Meds Medication Instructions Recorded Confirmed Alprazolam [Xanax] 0.5 mg PO TID 02/12/13 05/02/16 Gabapentin [Neurontin] 600 mg PO BID 12/10/15 05/02/16 Methotrexate 12.5 mg PO QWK 12/10/15 05/02/16 PARoxetine [Paxil] 40 mg PO DAILY 12/10/15 05/02/16 QUEtiapine [SEROquel] 150 mg PO HS 12/10/15 05/02/16 Simvastatin 20 mg PO DAILY 12/10/15 05/02/16 Review of Systems - Physician Review All systems were reviewed & negative as marked: Yes - Review of Systems Constitutional: Normal. absent: Fevers Eyes: Normal ENT: Normal Respiratory: SOB, Cough Cardiovascular: Chest Pain Gastrointestinal: Normal. absent: Abdominal Pain, Diarrhea, Nausea, Vomiting Genitourinary Female: Normal. absent: Dysuria, Frequency, Hematuria, Urine Output Changes Musculoskeletal: Normal. absent: Back Pain, Neck Pain Skin: Normal. absent: Rash Neurological: Normal. absent: Headache, Dizziness Endocrine: Normal Hemo/Lymphatic: Normal Psychiatric: Normal Physical Exam Vital Signs Reviewed: Yes Vital Signs Temp Pulse Resp BP Pulse Ox 06/30/16 06:17 98.5 F 98 H 18 143/74 93 L Temperature: Afebrile Blood Pressure: Normal Pulse: Regular Respiratory Rate: Normal Appearance: Positive for: Well-Appearing, Non-Toxic, Comfortable Pain Distress: None Mental Status: Positive for: Alert and Oriented X 3 - Systems Exam Head: Present: Atraumatic, Normocephalic Pupils: Present: PERRL Extroacular Muscles: Present: EOMI Conjunctiva: Present: Normal Mouth: Present: Moist Mucous Membranes Neck: Present: Normal Range of Motion Respiratory/Chest: Present: Decreased Breath Sounds (Decreased breath sounds bilaterally). No: Respiratory Distress, Accessory Muscle Use Cardiovascular: Present: Regular Rate and Rhythm, Normal S1, S2. No: Murmurs Abdomen: Present: Normal Bowel Sounds. No: Tenderness, Distention, Peritoneal Signs Back: Present: Normal Inspection Upper Extremity: Present: Normal Inspection. No: Cyanosis, Edema Lower Extremity: Present: Normal Inspection. No: Edema Neurological: Present: GCS=15, CN II-XII Intact, Speech Normal Skin: Present: Warm, Dry, Normal Color. No: Rashes Psychiatric: Present: Alert, Oriented x 3, Normal Insight, Normal Concentration Medical Decision Making ED Course and Treatment: 06/30/16 06:38 Impression: 75 year old female complaining of shortness of breath, mildly productive cough, and chest discomfort after coughing this morning. Differential Diagnosis included but are not limited to: COPD vs. pneumonia vs. ACS vs. CHF. Plan: -- EKG -- CXR -- Labs, cardiac enzymes, BNP -- Duoneb -- Reassess and disposition Prior Visits: Notes and results from previous visits were reviewed. Progress Notes: Reviewed EKG, sinus tachycardia at 101 bpm. Anterior infarct. Non-specific ST/T wave changes. 06/30/16 07:[address] Banks, pending labs, CXR, response to treatment, re- assessment, and final disposition. - RAD Interpretation Radiology Orders: 06/30/16 06:43 CHEST PORTABLE [RAD] Stat - EKG Interpretation Interpreted by ED Physician: Yes Type: 12 lead EKG - Medication Orders Current Medication Orders: Discontinued Medications Albuterol/Ipratropium (Duoneb 3 Mg/0.5 Mg (3 Ml) Ud) 3 ml IH ONCE STA Stop: 06/30/16 06:45 Methylprednisolone (Solu-Medrol) 125 mg IVP ONCE ONE Stop: 06/30/16 06:45 - Scribe Statement The provider has reviewed the documentation as recorded by the Devorah Boucher Provider Attestation: All medical record entries made by the Azeemibjono were at my direction and personally dictated by me. I have reviewed the chart and agree that the record accurately reflects my personal performance of the history, physical exam, medical decision making, and the department course for this patient. I have also personally directed, reviewed, and agree with the discharge instructions and disposition. Disposition/Present on Arrival - Present on Arrival Any Indicators Present on Arrival: No History of DVT/PE: No History of Uncontrolled Diabetes: No History Surgical Site Infection Following: None - Disposition Have Diagnosis and Disposition been Completed?: No Diagnosis: Dyspnea, COPD (chronic obstructive pulmonary disease) Disposition Time: 07:00 Condition: STABLE
[2016-06-30] MEDS ORDERED: Albuterol-Ipratrop 3 mg / 0.5 (3 ml) UD IH STA ×3 (06:44→07:38)
[2016-06-30 07:09] LABS: ALKALINE PHOSPHATASE 94 U/L (38-133); ALT/SGPT 34 U/L (7-56); AST/SGOT 32 U/L (15-39); BILIRUBIN,TOTAL 0.6 mg/dL (0.2-1.3); BLOOD UREA NITROGEN 18 mg/dL (7-21); CALCIUM 9.2 mg/dL (8.4-10.5); CARBON DIOXIDE 23 mmol/L (21-33); CHLORIDE 109 mmol/L (98-107); GFR AFRICAN-AMERICAN > 60; GLUCOSE,RANDOM 96 mg/dL (70-110); POTASSIUM 4.5 mmol/L (3.6-5.0); SODIUM 142 mmol/L (132-148); TOTAL PROTEIN 7.3 g/dL (5.8-8.3)
[2016-06-30 07:13] LABS: INR 0.99 (0.93-1.08); PARTIAL THROMBOPLASTIN TIME 27.3 Seconds (23.7-30.8)
[2016-06-30 07:23] LABS: HEMATOCRIT 31.9 % (36.0-48.0); MEAN CELL VOLUME 87.2 fL (80.0-105.0); MEAN CORPUSCULAR HEMOGLOBIN 27.6 pg (25.0-35.0); MEAN CORPUSCULAR HGB CONC 31.7 g/dl (31.0-37.0); RED CELL DISTRIBUTION WIDTH 17.6 % (11.5-14.5); WHITE BLOOD COUNT 9.7 10^3/ul (4.5-11.0)
[2016-06-30 07:32] LABS: TROPONIN I < 0.01 ng/mL
--- NOTE | 2016-06-30 08:40 | ED PDOC ---
Physical Exam Vital Signs Temp Pulse Resp BP Pulse Ox 06/30/16 08:41 96 H 17 139/66 92 L 06/30/16 06:17 98.5 F 98 H 18 143/74 93 L Medical Decision Making ED Course and Treatment: 06/30/16 07:00 Patient signed out to me by Dr. Pathak. Pending labs, Chest X-ray, reassessment and disposition. 06/30/16 08:35 Patient reevaluated at bed side. Patient states she is feeling a bit better. Oxygen levels at 90-91% on room air. Patient was advised to stay in the hospital for continued pulmonary treatment, however patient refused and will sign out AMA. Patient states she will follow up with her PMD within 24 hours and was also advised to return to the Emergency department if symptoms persist/ worsen. Leaving Against Medical Advice (AMA): The patient is choosing to leave against medical advice. I have personally explained to the patient that choosing to do so may result in permanent bodily harm or . I have discussed at great length that without further evaluation and monitoring there may be unforeseen circumstances and/or deterioration causing permanent bodily harm or as a result of their choice. The patient is alert, oriented, and shows the mental capacity to make clear decisions regarding the patients health care at this time. The patient continues to wish to leave against medical advice. The patient has been advised that they should return to the emergency room immediately if they change their mind at any time, or if their condition begins to change or worsen in any way. Re-evaluation Time: 08:35 Reassessment Condition: Re-examined - Lab Interpretations Lab Results: 06/30/16 06:55 06/30/16 06:55 Lab Results 06/30/16 06:55: WBC 9.7 D, RBC 3.66, Hgb 10.1 L, Hct 31.9 L, MCV 87.2, MCH 27.6 , MCHC 31.7, RDW 17.6 H, Plt Count 345, MPV 10.0 06/30/16 06:55: PT 10.7, INR 0.99, APTT 27.3 06/30/16 06:55: Sodium 142, Potassium 4.5, Chloride 109 H, Carbon Dioxide 23, Anion Gap 15, BUN 18, Creatinine 1.0, Est GFR ( Amer) > 60, Est GFR (Non- Af Amer) 54, Random Glucose 96, Calcium 9.2, Total Bilirubin 0.6, AST 32, ALT 34 , Alkaline Phosphatase 94, Lactate Dehydrogenase 499, Total Creatine Kinase 117 , Troponin I < 0.01, NT-Pro-B Natriuret Pep 476 H, Total Protein 7.3, Albumin 3.7, Globulin 3.7, Albumin/Globulin Ratio 1.0 L - RAD Interpretation Radiology Orders: 06/30/16 06:43 CHEST PORTABLE [RAD] Stat - Medication Orders Current Medication Orders: Discontinued Medications Albuterol/Ipratropium (Duoneb 3 Mg/0.5 Mg (3 Ml) Ud) 3 ml IH ONCE STA Stop: 06/30/16 06:45 Last Admin: 06/30/16 07:08 Dose: 3 ml Albuterol/Ipratropium (Duoneb 3 Mg/0.5 Mg (3 Ml) Ud) 3 ml IH STAT STA Stop: 06/30/16 07:17 Last Admin: 06/30/16 07:32 Dose: 3 ml Albuterol/Ipratropium (Duoneb 3 Mg/0.5 Mg (3 Ml) Ud) 3 ml IH STAT STA Stop: 06/30/16 07:39 Last Admin: 06/30/16 08:01 Dose: 3 ml Methylprednisolone (Solu-Medrol) 125 mg IVP ONCE ONE Stop: 06/30/16 06:45 Last Admin: 06/30/16 07:08 Dose: 125 mg - Devorah Statement The provider has reviewed the documentation as recorded by the Devorah Avila Provider Attestation: All medical record entries made by the Devorah were at my direction and personally dictated by me. I have reviewed the chart and agree that the record accurately reflects my personal performance of the history, physical exam, medical decision making, and the department course for this patient. I have also personally directed, reviewed, and agree with the discharge instructions and disposition. Disposition/Present on Arrival - Present on Arrival Any Indicators Present on Arrival: No History of DVT/PE: No History of Uncontrolled Diabetes: No Urinary Catheter: No History of Decub. Ulcer: No History Surgical Site Infection Following: None - Disposition Have Diagnosis and Disposition been Completed?: Yes Diagnosis: Dyspnea, COPD (chronic obstructive pulmonary disease) Disposition: AGAINST MEDICAL ADVICE Disposition Time: 08:40 Patient Problems: Current Active Problems Problem Status Onset COPD exacerbation Acute Back pain Acute Pneumonia Acute Condition: FAIR Discharge Instructions (ExitCare): COPD (Chronic Obstructive Pulmonary Disease ) (ED) Additional Instructions: Thank you for letting us take care of you today. You were treated for COPD. The emergency medical care you received today was directed at your acute symptoms. If you were prescribed any medication, please fill it and take as directed. It may take several days for your symptoms to resolve. Return to the Emergency Department if your symptoms worsen, do not improve, or if you have any other problems. Please contact your doctor or call one of the physicians/clinics you have been referred to that are listed on the Patient Visit Information form that is included in your discharge packet. Bring any paperwork you were given at discharge with you along with any medications you are taking to your follow up visit. Our treatment cannot replace ongoing medical care by a primary care provider (PCP) outside of the emergency department. Thank you for allowing the [facility] team to be part of your care today. Follow up with your doctor tomorrow morning. If you breathing becomes worse, call 911 and go to the emergency room. Prescriptions: Albuterol HFA [Ventolin HFA 90 mcg/actuation (8 g)] 2 puff IH [id number] PRN #1 puff PRN Reason: Wheezing Azithromycin [Zithromax] 250 mg PO DAILY #6 tab predniSONE [Prednisone] 40 mg PO DAILY #10 tab Referrals: Consuelo Powers MD [Family Provider] - Follow up with primary
[2016-06-30 08:42] VITALS: BP 139/66; PULSE 96; RESP 17; O2SAT 92
--- NOTE | 2016-06-30 09:32 | RAD ---
HISTORY: sob COMPARISON: 05/09/2016 FINDINGS: LUNGS: Questionable new bilateral focal nodular infiltrates. Recommend follow-up. PLEURA: No significant pleural effusion identified, no pneumothorax apparent. CARDIOVASCULAR: Normal. OSSEOUS STRUCTURES: No significant abnormalities. VISUALIZED UPPER ABDOMEN: Normal. OTHER FINDINGS: None. IMPRESSION: Questionable new bilateral focal nodular infiltrates. Recommend follow-up.
--- NOTE | 2016-06-30 14:54 | CARD ---
APPROVED REPORT EKG Measurement Heart [id number] <Conclusion> Sinus tachycardia Anterior infarct, age undetermined Abnormal ECG
== END 2016-06-30 08:45 | disposition left against medical advice (07) ==
LOC: ED 06:05
DX: J44.9 Chronic obstructive pulmonary disease, unspecified (principal); R06.00 Dyspnea, unspecified; F17.210 Nicotine dependence, cigarettes, uncomplicated

== ENCOUNTER 2016-06-30 17:34 | Inpatient (IN) | payer MEDICARE, BC ==
[2016-06-30 17:34] VITALS: BMI 23.3
--- NOTE | 2016-06-30 18:54 | ED PDOC ---
Arrival/HPI - General Historian: Patient - History of Present Illness Context: Home <Chantale Cruz - Last Filed: 06/30/16 21:32> <Wesley Mooresharron - Last Filed: 06/30/16 22:24> - General Chief Complaint: Back Pain Time Seen by Provider: 06/30/16 18:04 - History of Present Illness Narrative History of Present Illness (Text): 06/30/16 18:54 This is a 75 year old female, whose past medical history includes rheumatoid arthritis, hyperlipidemia, COPD, anxiety, and depression, who presents to the emergency department complaining b/l chronic lower back pain. Patient came with daughter. Patient stated Dr. Gaspar prescribed Motrin 800 mg tab x 3 days ago, which is not relieving her chronic back pain. Patient admits she was seen in this ED for exacerbation of emphysema, but she signed herself AMA this morning. Patient is requesting stronger pain medication. Daughter does not want patient to be prescribed Opiods pain medication since, patient sometimes take " more medication for what she is prescribed". Denies weakness, paresthesias, cp, n/v, abdominal pain, urinary symptoms, vaginal bleeding, or abnormal gait. (Chantale Cruz) Past Medical History - Provider Review Nursing Documentation Reviewed: Yes - Past History Past History: Non-Contributing - Infectious Disease Hx of Infectious Diseases: None - Tetanus Immunization Tetanus Immunization: Unknown - Reproductive Menopause: Yes - Past Medical History Past Medical History: No Previous - Cardiac Hx Hypertension: No - Pulmonary Hx Chronic Obstructive Pulmonary Disease (COPD): Yes - Neurological HX Cerebrovascular Accident: No Hx Seizures: No - HEENT Hx HEENT Disorder: No - Renal Hx Renal Disorder: No - Endocrine/Metabolic Hx Endocrine Disorders: No - Hematological/Oncological Hx Cancer: No - Integumentary Hx Dermatological Disorder: No - Musculoskeletal/Rheumatological Hx Arthritis: Yes (Hip OA) Hx Back Pain: Yes Hx Rheumatoid Arthritis: Yes - Gastrointestinal Hx Gastrointestinal Disorders: Yes (CONSTIPATION,DIARRHEA COLON POLYPS) - Genitourinary/Gynecological Hx Genitourinary Disorders: Yes (UTI,URINARY FREQUENCY) Hx Reproductive Disorders: No - Psychiatric Hx Psychophysiologic Disorder: Yes Hx Anxiety: Yes Hx Depression: Yes Hx Emotional Abuse: No Hx Hallucinations: No Hx Panic Disorder: No Hx Post Traumatic Stress Disorder: No Hx Psychosis: No Hx Physical Abuse: No Hx Schizophrenia: No Hx Sexual Abuse: No Hx Substance Use: No - Surgical History Hx Orthopedic Surgery: Yes (TOTAL HIP REPLACEMENT right 2010 [facility]) - Anesthesia Hx Anesthesia: Yes Hx Anesthesia Reactions: No Hx Malignant Hyperthermia: No - Suicidal Assessment Feels Threatened In Home Enviroment: No <CrzuChantale P - Last Filed: 06/30/16 21:32> Family/Social History - Physician Review Nursing Documentation Reviewed: Yes Family/Social History: No Known Family HX Smoking Status: Heavy Smoker > 10 Cigarettes Daily Hx Alcohol Use: No Hx Substance Use: No Hx Substance Use Treatment: No <CruzChantale P - Last Filed: 06/30/16 21:32> Allergies/Home Meds <Chantale Cruz P - Last Filed: 06/30/16 21:32> <Arleth Moore - Last Filed: 06/30/16 22:24> Allergies/Adverse Reactions: Allergies codeine Allergy (Verified 06/30/16 18:05) ANAPHYLAXIS Home Medications: Home Meds Medication Instructions Recorded Confirmed Alprazolam [Xanax] 0.5 mg PO TID 02/12/13 06/30/16 Gabapentin [Neurontin] 600 mg PO BID 12/10/15 06/30/16 Methotrexate 12.5 mg PO QWK 12/10/15 06/30/16 PARoxetine [Paxil] 40 mg PO DAILY 12/10/15 06/30/16 QUEtiapine [SEROquel] 150 mg PO HS 12/10/15 06/30/16 Simvastatin 20 mg PO DAILY 12/10/15 06/30/16 Review of Systems - Review of Systems Constitutional: Normal. absent: Fatigue, Weight Change, Fevers Eyes: Normal ENT: Normal. absent: Sore Throat Respiratory: SOB (patient stated chronic). absent: Cough, Sputum, Wheezing Cardiovascular: Normal. absent: Chest Pain, Palpitations Gastrointestinal: Normal. absent: Abdominal Pain, Nausea, Vomiting Genitourinary Female: Normal Musculoskeletal: Back Pain Skin: Normal Neurological: Normal. absent: Headache, Dizziness, Focal Weakness Endocrine: Normal Hemo/Lymphatic: Normal Psychiatric: Normal <CruzChantale P - Last Filed: 06/30/16 21:32> Physical Exam Temperature: Afebrile Blood Pressure: Normal Pulse: Regular Respiratory Rate: Normal Appearance: Positive for: Well-Appearing, Non-Toxic, Comfortable Pain Distress: None Mental Status: Positive for: Alert and Oriented X 3 - Systems Exam Head: Present: Atraumatic, Normocephalic Pupils: Present: PERRL Extroacular Muscles: Present: EOMI Conjunctiva: Present: Normal Mouth: Present: Moist Mucous Membranes Pharnyx: Present: Normal. No: ERYTHEMA, EXUDATE, TONSILS ENLARGED Neck: Present: Normal Range of Motion. No: Meningeal Signs Respiratory/Chest: Present: Clear to Auscultation, Good Air Exchange. No: Respiratory Distress, Accessory Muscle Use, Rales, Retracting, Rhonchi Cardiovascular: Present: Regular Rate and Rhythm, Normal S1, S2. No: Murmurs Abdomen: Present: Normal Bowel Sounds. No: Tenderness, Distention, Peritoneal Signs Back: Present: Normal Inspection, Paraspinal Tenderness (mild b/l paravertebral tenderness. No vertebral point tenderness. No vertebral step off). No: CVA Tenderness Upper Extremity: Present: Normal Inspection, Normal ROM, Neurovascularly Intact , Capillary Refill < 2s. No: Cyanosis, Edema Lower Extremity: Present: Normal Inspection, NORMAL PULSES, Normal ROM, Neurovascularly Intact, Capillary Refill < 2 s. No: Edema, CALF TENDERNESS Neurological: Present: GCS=15, CN II-XII Intact, Speech Normal, Normal Sensory Function, Normal Cerebellar Funct, Gait Normal Skin: Present: Warm, Dry, Normal Color. No: Rashes Psychiatric: Present: Alert, Oriented x 3, Normal Insight, Normal Concentration <Cruz,Nahim P - Last Filed: 06/30/16 21:32> Medical Decision Making Re-evaluation Time: 21:33 Reassessment Condition: Re-examined, Improving,but remains with symptoms <Cruz,Nahim P - Last Filed: 06/30/16 21:32> - EKG Interpretation Interpreted by ED Physician: Yes Type: 12 lead EKG <Arleth Moore - Last Filed: 06/30/16 22:24> ED Course and Treatment: 06/30/16 21:32 Dr. Moore spoke with PMD regarding admission for COPD exacerbation (Cruz,Nahim P) 06/30/16 22:16 Patient is a 75 yo female, smoker, hx of COPD, hx of back pain with compression fracture, presents to ED with complaint of low back. On exam, she is ambulatory , motor and sensory exam intact. Patient noted to be very dyspneic with exertion. Initially refuses treatment for sob. Family contacted and patient agreeable to have treatment for dyspnea/wheezes. Daughter at bedside and patient agreeable for admission. Prior chest xray done this am ? infiltrates. CXR reading reviewed with patient and PMD. She received Solumedrol this AM. Nebulizers continued in ED, iv antibiotics given. UTI noted, but no fever or CVA tenderenss currently. Patient will be admitted for COPD exacerbation, back pain, possible pneumonia. ( Arleth Moore) - Lab Interpretations Lab Results: 06/30/16 19:05 06/30/16 19:05 Lab Results 06/30/16 19:15: Urine Color Yellow, Urine Appearance Clear, Urine pH 6.0, Ur Specific [place] 1.020, Urine Protein 30 H, Urine Glucose (UA) Negative, Urine Ketones Negative, Urine Blood Moderate H, Urine Nitrate Positive H, Urine Bilirubin Negative, Urine Urobilinogen 0.2, Ur Leukocyte Esterase Trace H, Urine RBC 0 - 2, Urine WBC 2 - 5, Ur Epithelial Cells 0 - 2, Urine Bacteria Many 06/30/16 19:05: Sodium 140, Potassium 5.0, Chloride 107, Carbon Dioxide 21, Anion Gap 17, BUN 23 H, Creatinine 1.0, Est GFR ( Amer) > 60, Est GFR ( Non-Af Amer) 54, Random Glucose 125 H, Calcium 10.1, Total Bilirubin 0.9, AST 41 H, ALT 39, Alkaline Phosphatase 123, Lactate Dehydrogenase 667, Total Creatine Kinase 167, Troponin I < 0.01, Total Protein 8.6 H, Albumin 4.5, Globulin 4.1, Albumin/Globulin Ratio 1.1 06/30/16 19:05: WBC 13.8 H D, RBC 3.65, Hgb 10.3 L, Hct 31.0 L, MCV 84.9, MCH 28.2, MCHC 33.2, RDW 17.4 H, Plt Count 359, MPV 9.8, Gran % 92.1 H, Lymph % ( Auto) 7.1 L, Rhea % (Auto) 0.7 L, Eos % (Auto) 0.0 L, Baso % (Auto) 0.1, Gran # 12.66 H, Lymph # 1.0 L, Rhea # 0.1, Eos # 0.0, Baso # 0.01 - RAD Interpretation Radiology Orders: 06/30/16 21:19 CHEST PORTABLE [RAD] Stat - EKG Interpretation EKG Interpretation (Text): 06/30/16 22:23 EKG at 19:01 normal sinus rhythm rate of [address] elevations (Arleth Moore) - Medication Orders Current Medication Orders: Albuterol/Ipratropium (Duoneb 3 Mg/0.5 Mg (3 Ml) Ud) 3 ml IH Q6 [facility] Stop: 07/01/16 12:01 Alprazolam (Xanax) 0.5 mg PO TID [facility] PRN Reason: Protocol Gabapentin (Neurontin) 300 mg PO BID [facility] PRN Reason: Protocol Azithromycin (Zithromax 500mg In Ns) 500 mg in 250 mls @ 166.667 mls/hr IVPB STAT STA PRN Reason: Protocol Stop: 06/30/16 22:47 Methylprednisolone (Solu-Medrol) 40 mg IVP Q12 [facility] Pantoprazole Sodium (Protonix Ec Tab) 40 mg PO 0630 [facility] Paroxetine HCl (Paxil) 40 mg PO DAILY [facility] Quetiapine Fumarate (Seroquel) 150 mg PO HS [facility] PRN Reason: Protocol Discontinued Medications Acetaminophen (Tylenol 325mg Tab) 650 mg PO STAT STA Stop: 06/30/16 20:49 Last Admin: 06/30/16 21:29 Dose: 650 mg Albuterol/Ipratropium (Duoneb 3 Mg/0.5 Mg (3 Ml) Ud) 3 ml IH STAT STA Stop: 06/30/16 20:38 Last Admin: 06/30/16 20:46 Dose: 3 ml Amoxicillin/Clavulanate Potassium (Augmentin 875 Mg-125 Mg Tab) 1 tab PO STAT STA PRN Reason: Protocol Stop: 06/30/16 20:24 Last Admin: 06/30/16 20:39 Dose: 1 tab Ceftriaxone Sodium (Rocephin 1 Gram Ivpb) 1 gm in 100 mls @ 200 mls/hr IVPB ONCE STA PRN Reason: Protocol Stop: 06/30/16 21:47 Last Admin: 06/30/16 21:45 Dose: 200 mls/hr - PA / ATHLETIC [employer] CUSTODIAN / Resident Statement / has reviewed & agrees with the documentation as recorded. / has examined the patient and agrees with the treatment plan. <Arleth Moore - Last Filed: 06/30/16 22:24> Disposition/Present on Arrival - Present on Arrival Any Indicators Present on Arrival: No History of DVT/PE: No History of Uncontrolled Diabetes: No Urinary Catheter: No History of Decub. Ulcer: No History Surgical Site Infection Following: None - Disposition Have Diagnosis and Disposition been Completed?: Yes Disposition Time: 21:33 <Chantale Cruz - Last Filed: 06/30/16 21:32> - Disposition Patient Plan: Admission <Arleth Moore - Last Filed: 06/30/16 22:24> - Disposition Diagnosis: COPD exacerbation, Back pain, Pneumonia Disposition: HOSPITALIZED Patient Problems: Current Active Problems Problem Status Onset COPD exacerbation Acute Condition: FAIR
[2016-06-30 19:24] LABS: ADD MANUAL DIFF? NO
[2016-06-30 19:28] LABS: BASO # 0.01 K/mm3 (0.0-2.0); BASO % 0.1 % (0.0-3.0); GRAN # 12.66 (1.4-6.5); GRAN % 92.1 % (50.0-68.0); LYMPH % 7.1 % (22.0-35.0); MEAN CELL VOLUME 84.9 fL (80.0-105.0); MEAN CORPUSCULAR HEMOGLOBIN 28.2 pg (25.0-35.0); MEAN CORPUSCULAR HGB CONC 33.2 g/dl (31.0-37.0); MEAN PLATELET VOLUME 9.8 fl (7.0-11.0); MONO # 0.1 (0.1-0.6); MONO % 0.7 % (1.0-6.0); PLATELET COUNT 359 10^3/uL (120.0-450.0); RED CELL DISTRIBUTION WIDTH 17.4 % (11.5-14.5); WHITE BLOOD COUNT 13.8 10^3/ul (4.5-11.0)
[2016-06-30 19:35] LABS: URINE BILIRUBIN NEGATIVE (NEGATIVE); URINE BLOOD MODERATE (NEGATIVE); URINE GLUCOSE (UA) NEGATIVE (NEGATIVE); URINE KETONE NEGATIVE (NEGATIVE); URINE LEUKOCYTE ESTERASE TRACE Leu/uL (NEGATIVE); URINE PROTEIN 30 mg/dL (<30 mg/dL); URINE UROBILINOGEN 0.2 E.U./dL (<1 E.U./dL)
[2016-06-30 19:38] LABS: URINE APPEARANCE CLEAR (CLEAR); URINE COLOR YELLOW (YELLOW)
[2016-06-30 19:55] LABS: ALB/GLOB RATIO 1.1 (1.1-1.8); ALKALINE PHOSPHATASE 123 U/L (38-133); ALT/SGPT 39 U/L (7-56); AST/SGOT 41 U/L (15-39); BILIRUBIN,TOTAL 0.9 mg/dL (0.2-1.3); BLOOD UREA NITROGEN 23 mg/dL (7-21); CALCIUM 10.1 mg/dL (8.4-10.5); CARBON DIOXIDE 21 mmol/L (21-33); CHLORIDE 107 mmol/L (98-107); GFR AFRICAN-AMERICAN > 60; GLUCOSE,RANDOM 125 mg/dL (70-110); SODIUM 140 mmol/L (132-148); TOTAL PROTEIN 8.6 g/dL (5.8-8.3)
[2016-06-30 20:00] LABS: URINE BACTERIA MANY (NEG); URINE EPITHELIAL CELLS 0 - 2 /hpf (0-5); URINE RBC 0 - 2 /hpf (0-2)
[2016-06-30 20:14] LABS: TROPONIN I < 0.01 ng/mL
[2016-06-30] MEDS ORDERED: Amoxicillin-Clav 875-125 mg Tab PO STA (20:23)
[2016-06-30] MEDS ORDERED: Albuterol-Ipratrop 3 mg / 0.5 (3 ml) UD IH STA (20:37)
[2016-06-30] MEDS ORDERED: cefTRIAXone 1 gm 1 GM/100 ML BAG IVPB STA (21:18)
[2016-06-30] MEDS ORDERED: Azithromycin 500MG/NS 250ml 500 MG/250 ML BAG IVPB STA (21:18)
[2016-06-30] MEDS: MethylPREDNISolone 40 mg Vial IVP SCH (22:32)
[2016-07-01] MEDS ORDERED: Albuterol-Ipratrop 3 mg / 0.5 (3 ml) UD IH SCH
--- NOTE | 2016-07-01 02:56 | CP.PCM.PN ---
Subjective - Date & Time of Evaluation Date of Evaluation: 07/01/16 Time of Evaluation: 02:56 - Subjective Subjective: Patient was seen at bedside. She had complained of cough, dry cough, for a bout one week. Has history of smoking. No othe complaints. Denies sob, chest pain. Medical record was reviewed. This 75 year old white woman was admitted AMS, UTI. Has PMH of rheumatoid arthritis, COPD, smoker, anxiety, hyperlipidemia, osteoarthritis of hip. Objective - Vital Signs/Intake and Output Vital Signs (last 24 hours): Temp Pulse Resp BP Pulse Ox 97.6 F 72 20 126/68 95 07/01/16 00:10 07/01/16 00:10 07/01/16 00:10 07/01/16 00:10 06/30/16 22:51 - Medications Medications: Current Medications Albuterol/Ipratropium (Duoneb 3 Mg/0.5 Mg (3 Ml) Ud) 3 ml IH Q6 [facility] Stop: 07/01/16 12:01 Alprazolam (Xanax) 0.5 mg PO TID [facility] PRN Reason: Protocol Gabapentin (Neurontin) 300 mg PO BID [facility] PRN Reason: Protocol Methylprednisolone (Solu-Medrol) 40 mg IVP Q12 [facility] Last Admin: 06/30/16 22:32 Dose: 40 mg Pantoprazole Sodium (Protonix Ec Tab) 40 mg PO 0630 [facility] Paroxetine HCl (Paxil) 40 mg PO DAILY [facility] Quetiapine Fumarate (Seroquel) 150 mg PO HS [facility] PRN Reason: Protocol Last Admin: 06/30/16 22:47 Dose: 150 mg - Constitutional Appears: Well, No Acute Distress - Head Exam Head Exam: ATRAUMATIC, NORMAL INSPECTION, NORMOCEPHALIC - Eye Exam Eye Exam: Normal appearance - Neck Exam Neck Exam: Normal Inspection - Respiratory Exam Respiratory Exam: NORMAL BREATHING PATTERN - Cardiovascular Exam Cardiovascular Exam: absent: JVD - GI/Abdominal Exam GI & Abdominal Exam: absent: Distended - Rectal Exam Rectal Exam: Deferred - Extremities Exam Extremities Exam: Normal Inspection - Back Exam Back Exam: NORMAL INSPECTION - Neurological Exam Neurological Exam: Alert, Oriented x3 - Psychiatric Exam Psychiatric exam: Anxious - Skin Skin Exam: Normal Color Assessment and Plan - Assessment and Plan (Free Text) Assessment: A/P:Cough. COPD. Hyperlipidemia. Robitussin as ordered. Continue present management.
[2016-07-01] MEDS: guaiFENesin 100 mg/5 ml Syrup UD PO PRN ×2 (03:31→09:04)
[2016-07-01] MEDS: Pantoprazole 40 mg EC Tab PO SCH (05:44)
[2016-07-01] MEDS ORDERED: Albuterol-Ipratrop 3 mg / 0.5 (3 ml) UD IH PRN (06:30)
[2016-07-01] MEDS: Budesonide 0.5 mg/2 ml Inhal Susp UD IH SCH ×2 (07:18→19:46)
[2016-07-01] MEDS: Albuterol-Ipratrop 3 mg / 0.5 (3 ml) UD IH SCH ×3 (07:19→19:46)
[2016-07-01 07:20] LABS: ALB/GLOB RATIO 1.1 (1.1-1.8); ALKALINE PHOSPHATASE 99 U/L (38-133); ALT/SGPT 36 U/L (7-56); AST/SGOT 35 U/L (15-39); BILIRUBIN,TOTAL 0.7 mg/dL (0.2-1.3); BLOOD UREA NITROGEN 23 mg/dL (7-21); CALCIUM 9.7 mg/dL (8.4-10.5); CARBON DIOXIDE 19 mmol/L (21-33); CHLORIDE 108 mmol/L (98-107); GFR AFRICAN-AMERICAN > 60; GLUCOSE,RANDOM 150 mg/dL (70-110); POTASSIUM 4.7 mmol/L (3.6-5.0); SODIUM 141 mmol/L (132-148); TOTAL PROTEIN 8.3 g/dL (5.8-8.3)
--- NOTE | 2016-07-01 07:25 | RAD ---
HISTORY: sob, abnormal chest xray COMPARISON: Comparison is made to 06/30/2016 . FINDINGS: LUNGS: No significant interval change. Right perihilar linear opacities and prominent lung markings are again seen. PLEURA: No significant pleural effusion identified, no pneumothorax apparent. CARDIOVASCULAR: Normal. OSSEOUS STRUCTURES: No significant abnormalities. VISUALIZED UPPER ABDOMEN: Normal. OTHER FINDINGS: None. IMPRESSION: No significant interval change compared to the previous exam.
[2016-07-01 07:39] LABS: MEAN CELL VOLUME 86.4 fL (80.0-105.0); MEAN CORPUSCULAR HEMOGLOBIN 28.1 pg (25.0-35.0); MEAN CORPUSCULAR HGB CONC 32.6 g/dl (31.0-37.0); MEAN PLATELET VOLUME 10.6 fl (7.0-11.0); RED CELL DISTRIBUTION WIDTH 17.7 % (11.5-14.5); WHITE BLOOD COUNT 15.6 10^3/ul (4.5-11.0)
[2016-07-01] MEDS: MethylPREDNISolone 40 mg Vial IVP SCH ×2 (09:04→21:23)
[2016-07-01] MEDS ORDERED: Morphine 2 mg/ml ISec IVP PRN (09:23)
[2016-07-01] MEDS ORDERED: levoFLOXacin 500 MG TAB PO ONE (10:00)
[2016-07-01] MEDS ORDERED: cefTRIAXone 1 gm 1 GM/100 ML BAG IVPB SCH (10:00)
--- NOTE | 2016-07-01 10:02 | CON ---
DATE: 07/01/2016 REASON FOR CONSULTATION: Chronic obstructive pulmonary disease. REFERRING PHYSICIAN: Dr. Mi History is obtained via extensive discussion with the nurse. I have also reviewed the chart at length, and discussed the case with the patient at length. The patient is a 75-year-old female with past medical history significant for chronic obstructive pulmonary disease, positive extensive smoking history -- still smokes, rheumatoid arthritis, hyperlipidemia, anxiety, depression, chronic lower back pain, who presents to [facility] with worsening shortness of breath at rest, dyspnea on exertion, cough, and minimal sputum production for the past 5 days. There is no history of chest pain, coughing up of blood or chest pain -- made worse with deep respirations. There is no history of temperatures, chills or infectious exposure. There is no history of night sweats, weight loss or appetite change prior to the above events. No history of leg or calf pains. No history of syncope or diaphoresis. No history of recent travel or trauma. REVIEW OF SYSTEMS: The patient has had worsening lower back pain over the past few days. No history of nausea, vomiting or diarrhea. No acute urinary symptoms. No new neurologic complaints. Rest of the review of systems is negative. ALLERGIES: CODEINE. SOCIAL HISTORY: Positive for extensive tobacco usage -- still smokes. No alcohol. FAMILY HISTORY: No inheritable diseases. HOME MEDICATIONS: Include aspirin, Xanax, DuoNeb, Tylenol, methotrexate, Neurontin, Zithromax, prednisone, simvastatin, Seroquel, Protonix, Paxil. PHYSICAL EXAMINATION: GENERAL: The patient appears comfortable at rest. She is not short of breath. VITAL SIGNS: Temperature is 97.6, pulse 72, respirations 18/20, blood pressure 126/68. Oxygen saturation on room air is 94%-95%. HEENT: Normocephalic, atraumatic. No JVD. CARDIOVASCULAR: Positive S1, S2. No S3. LUNGS: Decreased breath sounds at the bases. Minimal rhonchi. Minimal wheezing. EXTREMITIES: Mild edema. No cyanosis, no clubbing. Calves are nontender to palpation. GASTROINTESTINAL: Abdomen is soft, nontender, nondistended. Bowel sounds are positive. SKIN: No acute rash. NEUROLOGIC: Limited at the present time. PERTINENT LABORATORY DATA: Chest x-ray was done and reviewed. I did compare the most recent film to previous films. There is a possible minimal infiltrate noted at the right base. However, the most current film does look similar to previous films. CBC: White count 13.8, hemoglobin 10.3, hematocrit 31.0, platelets of 359. Complete metabolic profile: BUN 23, glucose 125, AST 41, protein 8.6. Rest of the metabolic profile is within normal limits. Urinalysis : Urine nitrite positive, urine leukocyte esterase trace, urine bacteria many. IMPRESSION: 1. Acute bronchitis. 2. Chronic obstructive pulmonary disease. 3. Rule out pneumonia -- right lower lobe. 4. Mild anemia. 5. Rule out urinary tract infection. PLAN: The patient presents to [facility] with a 5-day history of worsening pulmonary symptoms. She also complains of worsening lower back pain for the past 3 days. She was thus admitted for additional evaluation. I did review the x-ray as above. Compared to the previous films, the most current film is not significantly changed. As above, there may be a very small infiltrate noted at the right base. I have ordered a chest x-ray -- PA and lateral -- for closer evaluation. Procalcitonin level has also been ordered. For now, I will continue the patient on antibiotic therapy. Infectious disease evaluation with Dr. Acosta has been ordered. Goodwin cultures have been also ordered. On physical exam, only minimal bronchospasm is noted. I will continue with the current nebulizer treatments and low-dose intravenous steroids for now. I have also added inhaled Pulmicort. The patient does feel better this morning -- compared to the past few days. She is clinically improved. Additional pulmonary intervention will be based on the above results , as well as the clinical status of the patient. I will discuss the above with Dr. Mi. Thank you very much for this pulmonary consultation. Jayson Saravia MD cc: [id number] TT: 07/01/2016 10:01:30 Confirmation # [id number] Dictation # [id number] en MTDD
--- NOTE | 2016-07-01 10:23 | CARD ---
APPROVED REPORT EKG Measurement Heart [id number] <Conclusion> Normal sinus rhythm Normal ECG
--- NOTE | 2016-07-01 11:12 | HP ---
CHIEF COMPLAINT: Shortness of breath and lumbar back pain. HISTORY OF PRESENT ILLNESS: A 75-year-old female with a history of severe rheumatoid arthritis and osteoarthritis, recent compression fracture of the L1 area of lumbar spine 6 weeks ago, who presented to Emergency Room with complaints of progressive shortness of breath. Shortness of breath started early this morning. The patient went to Emergency Room, but signed AMA. The patient returned to Emergency Room due to severe low back pain. During Emergency Room evaluation, ER physician noted the patient was very dyspneic. She complains of exertional dyspnea and some dry cough. She denies any chest pain, fever. She denied any recent fall. The patient has known history of ADVERSE REACTION TO NARCOTICS PAIN MEDICATION WITH EPISODE OF DELIRIUM. She was treated for her pain with Tylenol and Celebrex only. PAST MEDICAL HISTORY: Severe rheumatoid arthritis with osteoarthritis of the lumbar spine, both hands .The patient has history of COPD with history of smoking for the last 50 years, history of depression and bipolar disorder, status post hip replacement. CURRENT MEDICATIONS: Albuterol through nebulizer, Xanax, Neurontin, Seroquel, Protonix, Paxil and gabapentin. The patient is also taking methotrexate once a week. ALLERGIES: THE PATIENT HAS HISTORY OF ADVERSE REACTION TO CODEINE WITH EPISODE OF DELIRIUM. Denies any other allergies. FAMILY HISTORY: Noncontributory. SOCIAL HISTORY: The patient has history of smoking. She continues smoking 5-7 cigarettes per day. She denies any alcohol use or drug use. The patient is retired. The patient lives with . She is ambulatory, but needs supervision with her medication. REVIEW OF SYSTEMS: The patient complains of loss of appetite, but denies any fever or weight loss. The patient denies any sore throat, nasal congestion. Complaining of cough productive of mild mucus and complaining of exertional dyspnea. Denies any chest pain or wheezing. Denies any heart palpitation or diaphoresis. Denies any abdominal pain, but complains of diarrhea this morning. The patient denies any dysuria, hematuria, flank pain. Complaining of multiple joint pains, recently more localized in the lower lumbar spine with radiation to both legs. Complaining of hand pain, joint stiffness in the morning. The patient complains of severe anxiety, insomnia, depressed mood. Denies suicidal thoughts. PHYSICAL EXAMINATION: VITAL SIGNS: Stable. Temperature 97.9, pulse in Emergency Room was 101, regular, blood pressure was 154/85, repeated 122/68, respiratory rate was 20, and oxygen saturation 94% on room air, this morning 96%. GENERAL: The patient is alert, awake, oriented to place, person and time, crying and depressed mood due to hospital stay. HEAD: Normocephalic, atraumatic. EYES: With pupils reactive to light. MOUTH: Oral mucosa is moist. NECK: Supple. LUNGS: With decreased breath sounds. No wheezing, no rhonchi, rales or crackles. HEART: With regular rhythm and rate. ABDOMEN: Soft, nontender, nondistended. EXTREMITIES: With no edema. Severe deformities of both hands and feet. There is tenderness of the lower lumbar spine area. NEUROLOGIC: Showed alert, awake, oriented to person with no acute sensory or motor deficits. PSYCHIATRIC: Significant for depressed mood. LABORATORY TESTS: Showed CBC with WBC 13.8, hemoglobin 10.3, hematocrit 31 and platelet count ,000. Chemistry showed normal electrolytes, BUN 23, creatinine 1. Liver enzymes normal. Troponin was negative. BNP during her first Emergency Room evaluation was 450. Her chest x-ray showed lower lung bilateral nodular infiltration versus atelectasis, no pleural effusion, heart normal. Her EKG showed normal sinus rhythm, no ST-T changes. Urinalysis showed moderate amount of blood in the urine and positive nitrites. ASSESSMENT: 1. A 75-year-old female with exertional dyspnea and probably exacerbation of chronic obstructive pulmonary disease, less likely pneumonia. 2. Severe lumbar back pain with history of recent compression fracture. 3. Severe rheumatoid arthritis and osteoarthritis with chronic pain syndrome. 4. Urinary tract infection. 5. Bipolar disorder with depression state. PLAN OF TREATMENT: The patient had cultures done in the Emergency Room. She was started on Rocephin, treated with nebulizer and Solu-Medrol. [employer] was called on consult. I will start small dose of morphine for her pain for severe pain and continue Tylenol for mild pain. Dr. Gaspar was called for consult. Will continue her chronic psychiatric medications, antidepressant, Paxil, Xanax and Seroquel. Consuelo Powers MD cc: [id number] TT: 07/01/2016 11:11:17 en ALIZA
--- NOTE | 2016-07-01 14:30 | CON ---
DATE: 07/01/2016 LOCATION: [facility], bed 2. REQUESTING PHYSICIAN: Consuelo Powers MD CHIEF COMPLAINT: Low back pain. HISTORY OF PRESENT ILLNESS: The patient is a 75-year-old female complaining of severe low back pain across from her lower back. The patient has a history of acute compression fracture of L1, status po st L1 kyphoplasty a week to 10 days ago. The patient stated that she is complaining of low back pain across her lower back away from L1. She denied any pain shooting down to bilateral lower extremitie s. She stated that her lower back pain radiates to the bilateral gluteal area only. No tingling or numbness to bilateral lower extremities. Her pain level is 7/10. The patient is currently on Tylenol and Celebrex only, no narcotic medicatio n at home. PAST MEDICAL HISTORY: Severe rheumatoid arthritis, osteoarthritis, severe rheumatoid arthritis affec ting both hands, history of COPD with history of smoking for last 50 years, depression, bipolar disor gb and anxiety disorders. The patient is status post hip replacement. CURRENT MEDICATIONS: The patient has albuterol, Xanax, Neurontin, Seroquel, Protonix, Paxil, methotr exate once a week. ALLERGIES: THE PATIENT REPORTED ADVERSE REACTION TO CODEINE WITH EPISODES OF DELIRIUM. FAMILY HISTORY: Noncontributory. SOCIAL HISTORY: The patient has a history of smoking. She lives with her . She continues to smoke 5-7 cigarettes per day. She denied any alcohol intake or drug abuse. REVIEW OF SYSTEMS: Notable for low back pain, shortness of breath, cough. Denied any chest pain, de nied any wheezing. PHYSICAL EXAMINATION: VITAL SIGNS: She is afebrile. Vital signs stable. GENERAL: She is sitting on the edge of the bed, in mild distress. HEAD: Normocephalic, atraumatic. EYES: PERRLA. NECK: Supple. No jugular venous distention. LUNGS: Decreased breath sounds. HEART: S1, S2 is normal, regular rate and rhythm. ABDOMEN: Soft, nontender, nondistended. NEUROMUSCULAR: She is alert, awake, and oriented x 3, concentrates very well. Cranial nerves II-XII grossly intact. There is no tenderness over L1 vertebral bodies. There is tenderness over L4, L5 s pinous process with tenderness bilateral lumbar paraspinals and bilateral lumbar facet joint line. ASSESSMENT: Low back pain, status post kyphoplasty of L1 ten days ago. Her pain at this point is lo wer level L4-L5, L5-S1 with facetogenic in origin. RECOMMENDATIONS: 1. Will change morphine to 1 mg Dilaudid every 4 hours and will add Flexeril 10 mg 1 p.o. at bedtime as a muscle relaxant. 2. Will order a lumbar spine x-ray to check for any recent fractures. 3. The patient to follow up as an outpatient upon discharge for possible lumbar epidural or facet nathaniel int block. Dez Gaspar MD cc: [phone] TT: 07/01/2016 14:30:02 Confirmation # [id number] Dictation # [id number] en
--- NOTE | 2016-07-01 14:35 | RAD ---
PROCEDURE: Radiographs of the Lumbar Spine. HISTORY: BACK PAIN COMPARISON: No prior. FINDINGS: BONES: Normal alignment. No listhesis. No fracture. DISC SPACES: There is disc space narrowing in the lower lumbar spine. OTHER FINDINGS: Previous vertebroplasty L1 on the right side IMPRESSION: Disc degeneration lower lumbar spine
--- NOTE | 2016-07-01 19:02 | CON ---
DATE: 07/01/2016 The patient was seen earlier in 574, bed 2. CHIEF COMPLAINT: Shortness of breath and cough times several days. HISTORY OF PRESENT ILLNESS: This is a 75-year-old female who had recent hospitalization with chronic obstructive lung disease, urinary tract infections with Escherichia coli and recent hospitalization. The patient also has rheumatoid arthritis and has been on immunosuppressive medications, is a long time smoker, history of coronary artery disease, anxiety, depression and a history of a hip surgery, colonoscopy with colonic polyp removal in the past, with no known allergies. On this admission, the patient is admitted with a chief complaint of shortness of breath and cough. She was seen in the [facility] Room by , complaining of cough and shortness of breath. There have been no fevers, n o chills, no chest pain, no abdominal pain, no diarrhea or constipation and no headaches. PAST MEDICAL HISTORY: Is significant for end-stage chronic obstructive lung disease, rheumatoid arth ritis, hypertension, E. coli urinary tract infection and recent hospitalization, coronary artery dise ase, anxiety and depression. PAST SURGICAL HISTORY: Is significant for hip surgery and colonoscopy with polyp removal. ALLERGIES: The patient has no known allergies. MEDICATIONS: Include Paxil, Seroquel, statin, Xanax, Neurontin and methotrexate. PHYSICAL EXAMINATION: GENERAL: The patient is in bed, in no acute distress, nontoxic; however, she appears much older than her stated age of 75. VITAL SIGNS: Temperature of 98, blood pressure is 150/80, respiratory rate of 20 and heart rate of 1 01 and the patient is saturating at 94% on O2 saturation. HEENT: Unremarkable. NECK: Supple. LUNGS: Have decreased breath sounds. HEART: Normal S1, S2. ABDOMEN: Soft, nontender, no rebound, no guarding, no masses. LABORATORY EXAMINATION: Reveals a white count of 13,800, hemoglobin of 10, platelets of 359. Chemis tries reveal the BUN of 23, creatinine of 1.0. Procalcitonin is less than 0.05. Urinalysis is noted , had 2-5 WBCs. The patient also had a chest x-ray on the 7th, which was yesterday, shows no signifi cant interval change. There is a right peripheral linear opacity. Dr. Dez Gaspar's consultation is reviewed. Dr. Mi's history and physical examination is reviewed. Dr. Saravia's consultati on is also reviewed. ASSESSMENT AND PLAN: The patient is a 75-year-old female with rheumatoid arthritis, osteoarthritis, end-stage chronic obstructive pulmonary disease, hypertension, Escherichia coli urinary tract infecti on, coronary artery disease, anxiety, depression, recent hospitalization, presenting with shortness o f breath and cough, tachycardia, leukocytosis in an immunocompromised patient with methotrexate, righ t lower lobe and hypoxia. 1. Severe sepsis with a right lower lobe healthcare-associated pneumonia with a normal procalcitonin . Will treat the patient with Maxipime and doxycycline and the patient is currently on Solu-Medrol. Will check on the hall culture results and at this time the patient does have a Gram-negative chase in the urine, but she has no urinary symptoms and the urinalysis is unremarkable. Will discontinue the ceftriaxone and the Levaquin and use doxycycline and Maxipime. Of note, patient's EKG shows a QTC of 438. I am going to repeat the procalcitonin. Chai Acosta MD cc: [id number] TT: 07/01/2016 19:01:18 Confirmation # [id number] Dictation # [id number] john
[2016-07-01] MEDS: Cefepime 1gm in NS 100ml 1 GM/100 ML BAG IVPB SCH (21:23)
[2016-07-02] MEDS: Albuterol-Ipratrop 3 mg / 0.5 (3 ml) UD IH SCH ×4 (01:30→20:33)
[2016-07-02] MEDS: guaiFENesin 100 mg/5 ml Syrup UD PO PRN (03:28)
[2016-07-02] MEDS: Cefepime 1gm in NS 100ml 1 GM/100 ML BAG IVPB SCH ×3 (05:57→21:35)
[2016-07-02] MEDS: Pantoprazole 40 mg EC Tab PO SCH (06:00)
[2016-07-02] MEDS: Budesonide 0.5 mg/2 ml Inhal Susp UD IH SCH ×2 (07:28→20:33)
--- NOTE | 2016-07-02 08:23 | PN ---
DATE: 07/02/2016 The patient appears comfortable this morning. She is not short of breath at rest. PHYSICAL EXAMINATION: VITAL SIGNS: Temperature is 98.0, pulse 78, respirations 18, blood pressure 124 /67. Oxygen saturation on room air is 95%. HEENT: Normocephalic, atraumatic. No JVD. CARDIOVASCULAR: Positive S1, S2. No S3. LUNGS: Improved breath sounds at the bases. Less rhonchi. No wheezing this morning. EXTREMITIES: Mild edema. No cyanosis, no clubbing. Calves are nontender to palpation. GASTROINTESTINAL: Abdomen is soft, nontender, nondistended. Bowel sounds are positive. SKIN: No acute rash. NEUROLOGIC: Limited at the present time. IMPRESSION: 1. Acute bronchitis. 2. Chronic obstructive pulmonary disease. 3. Rule out pneumonia -- right lower lobe. 4. Mild anemia. 5. Rule out urinary tract infection. PLAN: The patient appears very comfortable this morning. She is not short of breath at rest. She states she is feeling much better overall. On physical exam, her bronchospasm is certainly less. In addition, the oxygen saturation on room air is 95%. I will continue with the current nebulizer treatments and decrease the intravenous steroids this morning. I would continue with the antibiotic coverage as per infectious disease. Input by Dr. Acosta is noted. The patient did have a procalcitonin level done -- which is negative. I have also ordered a repeat chest x-ray -- for this morning -- for comparison. Blood cultures remain negative so far. However, the urine culture is positive for gram-negative rods. I will leave the antibiotic coverage up to Dr. Acosta. Clinical status of the patient is significantly improved -- compared to the initial presentation. I have advised the patient to be out of bed as much as possible. I will discuss the above with Dr. Mi. Jayson Saravia MD cc: [id number] TT: 07/02/2016 08:23:31 Confirmation # [id number] Dictation # [id number] en MTDD
[2016-07-02 09:36] LABS: HEMATOCRIT 29.1 % (36.0-48.0); MEAN CELL VOLUME 85.3 fL (80.0-105.0); MEAN CORPUSCULAR HEMOGLOBIN 28.2 pg (25.0-35.0); RED CELL DISTRIBUTION WIDTH 17.6 % (11.5-14.5); WHITE BLOOD COUNT 11.2 10^3/ul (4.5-11.0)
[2016-07-02 09:52] LABS: ALB/GLOB RATIO 1.1 (1.1-1.8); ALKALINE PHOSPHATASE 87 U/L (38-133); ALT/SGPT 39 U/L (7-56); AST/SGOT 31 U/L (15-39); BILIRUBIN,TOTAL 0.5 mg/dL (0.2-1.3); BLOOD UREA NITROGEN 31 mg/dL (7-21); CALCIUM 8.9 mg/dL (8.4-10.5); CARBON DIOXIDE 22 mmol/L (21-33); CHLORIDE 108 mmol/L (95-110); GFR AFRICAN-AMERICAN > 60; GLUCOSE,RANDOM 128 mg/dL (70-110); POTASSIUM 4.6 mmol/L (3.6-5.0); SODIUM 141 mmol/L (132-148); TOTAL PROTEIN 7.1 g/dL (5.8-8.3)
[2016-07-02] MEDS ORDERED: MethylPREDNISolone 40 mg Vial IVP SCH (10:00)
[2016-07-02] MEDS: Clotrimazole/Betamethasone Cream(15 gm) TOP SCH ×2 (10:30→18:01)
--- NOTE | 2016-07-02 10:30 | PN ---
DATE: 07/02/2016 The patient was admitted for exertional dyspnea and severe low back pain. The patient is feeling a little bit better. She is feeling depressed and anxious and states that she wants to go home. The patient denies any shortness of breath today. She has some cough and chest congestion. She is complaining of loose stools since admission. PHYSICAL EXAMINATION: VITAL SIGNS: Stable. Temperature is 98, pulse 74, blood pressure 96/72 and respiratory rate 18. Her oxygen saturation is 93% on room air. GENERAL: She is sitting on the bedside. She is alert, awake, oriented. HEENT: Head is normocephalic, atraumatic. Oral mucosa is moist. NECK: Supple. LUNGS: With decreased breath sounds, but no rhonchi, rales or wheezing. HEART: With regular rhythm and rate. ABDOMEN: Soft, nontender, nondistended. EXTREMITIES: With no edema. NEUROLOGIC: Normal. PSYCHIATRIC: The patient is anxious, crying with depressed mood. DIAGNOSTIC TESTS: CBC with improved WBC 11.2, hemoglobin 9.6, hematocrit 29.1 and platelet count of 373. Chemistry is still pending. Her procalcitonin was negative yesterday. Her urine culture was positive for E. coli, sensitive to all antibiotics. Her blood cultures after 24 hours are negative. ASSESSMENT: 1. Exacerbation of chronic obstructive pulmonary disease, possibility of pneumonia on chest x-ray. 2. Urinary tract infection with Escherichia coli in urine culture. 3. Severe lumbar back pain with history of recent compression fracture. 4. Severe rheumatoid arthritis. 5. Anemia of chronic disease. 6. Bipolar disorder with depression. PLAN OF TREATMENT: We will continue the oral doxycycline and Maxipime IV antibiotic regimen as per infectious disease. Follow up cultures. Will check stool for Clostridium difficile infection. The patient will be maintained on budesonide and albuterol through nebulizer. Will discontinue Solu-Medrol and start oral prednisone 20 mg. Continue pain medication as prescribed. Consuelo Powers MD cc: [id number] TT: 07/02/2016 10:29:47 Confirmation # [id number] Dictation # [id number] en [facility]ITAL[facility]le
--- NOTE | 2016-07-02 10:56 | RAD ---
HISTORY: follow up COMPARISON: 06/30/2016 TECHNIQUE: Chest PA and lateral FINDINGS: LUNGS: No focal consolidation. No significant change from prior study PLEURA: No significant pleural effusion identified. No pneumothorax apparent. CARDIOVASCULAR: Normal. OSSEOUS STRUCTURES: No significant abnormalities. VISUALIZED UPPER ABDOMEN: Normal. OTHER FINDINGS: None. IMPRESSION: No active disease.
[2016-07-02] MEDS: HYDROmorphone 1 mg/ml ISec IVP PRN (12:23)
--- NOTE | 2016-07-02 16:01 | PN ---
DATE: 07/02/2016 LOCATION: 574, bed 2 CHIEF COMPLAINT: Low back pain. HISTORY OF PRESENT ILLNESS: The patient is a patient known to us. She was seen yesterday with sever e low back pain and her medications were adjusted and lumbar spine x-rays were ordered for the patien t to evaluate if any new acute fracture developed as patient is status post kyphoplasty of L1 done 10 days ago. Lumbar spine x-ray, AP and lateral, done on 07/01/2016 and it showed evidence of previous vertebroplast y L1, disk degeneration lower lumbar spine. No acute fracture or no new fracture was seen. MEDICATIONS: She is currently on Dilaudid 1 mg as needed along with Xanax 1 mg and Flexeril and le pentin 300 mg b.i.d., Flexeril 10 mg at bedtime, Dilaudid IV push q.4 hours as needed. PHYSICAL EXAMINATION: GENERAL: The patient is sitting comfortably in bed. She is in no acute distress. VITAL SIGNS: Pulse ox was 91, pulse 74. HEENT: Head is normocephalic, atraumatic. PERRLA. NECK: No jugular venous distention, no thyromegaly. LUNGS: Decreased breath sounds bilaterally. HEART: S1, S2 is normal. ABDOMEN: Soft, nontender, nondistended. NEUROMUSCULAR: She is alert, awake, and oriented x 3, concentrates very well. Cranial nerves II-XI I grossly intact. There is tenderness over lower lumbar spine. There is no localized tenderness ove r L1 lumbar spine. There is tenderness bilateral lumbar paraspinals. IMPRESSION: Low back pain secondary to degenerative disk disease and lumbar spondylosis without myel opathy. The patient is status post kyphoplasty for L1. RECOMMENDATIONS: 1. The patient to continue with the current medication regimen. 2. Spoke with Dr. Mi, her primary care physician, in length about her medication and patient w as evaluated in April by Dr. Carrie Patton, psychiatrist, and adjusted her medication. 3. Instructed the patient and informed Dr. Mi that the patient will be seen as an outpatient i mmediately upon discharge to adjust her medication and to reevaluate her. Dez Gaspar MD cc: [phone] TT: 07/02/2016 16:00:42 Confirmation # [id number] Dictation # [id number] sn
[2016-07-02 16:50] VITALS: RESP 20
--- NOTE | 2016-07-02 19:47 | CP.PCM.PN ---
Subjective - Date & Time of Evaluation Date of Evaluation: 07/02/16 Time of Evaluation: 11:00 - Subjective Subjective: Comfortable in bed, not in distress, breathing better, afebrile overnight. Objective - Vital Signs/Intake and Output Vital Signs (last 24 hours): Temp Pulse Resp BP Pulse Ox 98.8 F 84 20 131/87 91 L 07/02/16 16:00 07/02/16 16:00 07/02/16 16:00 07/02/16 16:00 07/02/16 16:00 Intake and Output: 07/02/16 07/03/16 18:59 06:59 Intake Total 540 Balance 540 - Medications Medications: Current Medications Acetaminophen (Tylenol 325mg Tab) 650 mg PO Q4H PRN PRN Reason: Pain, Mild (1-3) Albuterol/Ipratropium (Duoneb 3 Mg/0.5 Mg (3 Ml) Ud) 3 ml IH [id number] [facility] Last Admin: 07/02/16 13:50 Dose: 3 ml Albuterol/Ipratropium (Duoneb 3 Mg/0.5 Mg (3 Ml) Ud) 3 ml IH Q2H PRN PRN Reason: Shortness of Breath Alprazolam (Xanax) 0.5 mg PO TID RENE PRN Reason: Protocol Last Admin: 07/02/16 17:33 Dose: 0.5 mg Betamethasone/Clotrimazole (Lotrisone) 1 gm TOP BID [facility] Last Admin: 07/02/16 18:01 Dose: Not Given Budesonide (Pulmicort Respules) 0.5 mg IH [id number] [facility] Last Admin: 07/02/16 07:28 Dose: 0.5 mg Cyclobenzaprine HCl (Flexeril) 10 mg PO HS [facility] Last Admin: 07/01/16 21:22 Dose: 10 mg Doxycycline Hyclate (Doryx) 100 mg PO Q12 RENE PRN Reason: Protocol Stop: 07/08/16 22:01 Last Admin: 07/02/16 09:27 Dose: 100 mg Gabapentin (Neurontin) 300 mg PO BID RENE PRN Reason: Protocol Last Admin: 07/02/16 18:03 Dose: 300 mg Guaifenesin (Robitussin) 100 mg PO Q4H PRN PRN Reason: Cough Last Admin: 07/02/16 03:28 Dose: 100 mg Hydromorphone HCl (Dilaudid) 1 mg IVP Q4H PRN PRN Reason: Pain, moderate (4-7) Last Admin: 07/02/16 12:23 Dose: 1 mg Cefepime HCl (Maxipime 1gm) 1 gm in 100 mls @ 100 mls/hr IVPB Q8 RENE PRN Reason: Protocol Stop: 07/08/16 22:01 Last Admin: 07/02/16 14:29 Dose: 100 mls/hr Pantoprazole Sodium (Protonix Ec Tab) 40 mg PO 0630 [facility] Last Admin: 07/02/16 06:00 Dose: 40 mg Paroxetine HCl (Paxil) 40 mg PO DAILY [facility] Last Admin: 07/02/16 09:26 Dose: 40 mg Prednisone (Prednisone Tab) 20 mg PO DAILY [facility] Last Admin: 07/02/16 09:41 Dose: 20 mg Quetiapine Fumarate (Seroquel) 150 mg PO HS RENE PRN Reason: Protocol Last Admin: 07/01/16 21:22 Dose: 150 mg - Labs Labs: 07/02/16 09:30 07/02/16 09:30 - Constitutional Appears: Non-toxic, No Acute Distress - Head Exam Head Exam: NORMAL INSPECTION - ENT Exam ENT Exam: Mucous Membranes Moist - Neck Exam Neck Exam: absent: Lymphadenopathy, Meningismus - Respiratory Exam Respiratory Exam: Decreased Breath Sounds - Cardiovascular Exam Cardiovascular Exam: +S1, +S2 - GI/Abdominal Exam GI & Abdominal Exam: Soft. absent: Tenderness Assessment and Plan - Assessment and Plan (Free Text) Plan: Assessment severe sepsis due to right lower lobe healthcare-associated pneumonia history of urinary tract infection with E. coli history of bilateral hospital-acquired pneumonia Rheumatoid arthritis on Humira and Methotrexate COPD depression anxiety coronary artery disease Plan continue Doxycycline and Cefepime pending blood cx (day 2) to complete a 4-7 day course of antibiotics Will continue to monitor clinically
[2016-07-03] MEDS: Albuterol-Ipratrop 3 mg / 0.5 (3 ml) UD IH SCH ×3 (01:16→13:41)
[2016-07-03] MEDS: Cefepime 1gm in NS 100ml 1 GM/100 ML BAG IVPB SCH ×2 (05:41→15:27)
[2016-07-03] MEDS: Pantoprazole 40 mg EC Tab PO SCH (05:41)
[2016-07-03] MEDS: HYDROmorphone 1 mg/ml ISec IVP PRN ×2 (07:02→12:09)
[2016-07-03 07:28] LABS: HEMATOCRIT 29.5 % (36.0-48.0); MEAN CELL VOLUME 85.3 fL (80.0-105.0); MEAN CORPUSCULAR HEMOGLOBIN 27.7 pg (25.0-35.0); MEAN CORPUSCULAR HGB CONC 32.5 g/dl (31.0-37.0); MEAN PLATELET VOLUME 9.9 fl (7.0-11.0); RED CELL DISTRIBUTION WIDTH 17.6 % (11.5-14.5); WHITE BLOOD COUNT 11.1 10^3/ul (4.5-11.0)
[2016-07-03 07:37] LABS: ALB/GLOB RATIO 1.1 (1.1-1.8); ALKALINE PHOSPHATASE 72 U/L (38-133); ALT/SGPT 42 U/L (7-56); AST/SGOT 38 U/L (15-39); BILIRUBIN,TOTAL 0.6 mg/dL (0.2-1.3); BLOOD UREA NITROGEN 29 mg/dL (7-21); CALCIUM 8.7 mg/dL (8.4-10.5); CARBON DIOXIDE 25 mmol/L (21-33); CHLORIDE 109 mmol/L (95-110); GFR AFRICAN-AMERICAN > 60; GLUCOSE,RANDOM 91 mg/dL (70-110); POTASSIUM 3.9 mmol/L (3.6-5.0); SODIUM 140 mmol/L (132-148); TOTAL PROTEIN 6.8 g/dL (5.8-8.3)
[2016-07-03] MEDS: Budesonide 0.5 mg/2 ml Inhal Susp UD IH SCH (07:53)
--- NOTE | 2016-07-03 08:41 | PN ---
DATE: 07/03/2016 SUBJECTIVE: The patient appears very comfortable at rest. She is not short of breath. PHYSICAL EXAMINATION: VITAL SIGNS: (Last noted in the computer): Temperature is 98.8, pulse 84, respirations 18, blood pressure 131/87. Oxygen saturation on room air ranges between 91-95%. HEENT: Normocephalic, atraumatic. No JVD. CARDIOVASCULAR: Positive S1, S2. No S3. LUNGS: Very minimal/less rhonchi. No wheezing. EXTREMITIES: Mild edema. No cyanosis, no clubbing. Calves are nontender to palpation. GASTROINTESTINAL: Abdomen is soft, nontender, nondistended. Bowel sounds are positive. SKIN: No acute rash. NEUROLOGIC: Limited at the present time. PERTINENT LABORATORY DATA: Chest x-ray was repeated yesterday and reviewed. There is no focal consolidation noted. IMPRESSION: 1. Acute bronchitis. 2. Chronic obstructive pulmonary disease. 3. Rule out pneumonia -- right lower lobe. 4. Mild anemia. 5. Rule out urinary tract infection. PLAN: The patient appears very comfortable this morning. She is not short of breath at rest. She states she is feeling much better overall. On physical exam, her bronchospasm continues to resolve. I will continue with the current nebulizer treatments and oral steroids (changed yesterday) for now. I would continue with the antibiotic coverage as per infectious disease. There are no temperatures noted. The leukocytosis has almost completely resolved. I did review the last x-ray -- as above. There are no significant infiltrates noted. Clinical status of the patient is significantly improved -- compared to the initial presentation. She is advised to increase her activity as tolerated. I will discuss the above with the attending physician. Jayson Saravia MD cc: [id number] TT: 07/03/2016 08:40:32 Confirmation # [id number] Dictation # [id number] ximena ABRAMS
[2016-07-03] MEDS: Clotrimazole/Betamethasone Cream(15 gm) TOP SCH (09:21)
--- NOTE | 2016-07-03 15:37 | CP.PCM.PN ---
Subjective - Date & Time of Evaluation Date of Evaluation: 07/03/16 Time of Evaluation: 10:40 - Subjective Subjective: Comfortable in bed, not in distress, breathing better, no fevers overnight. Objective - Vital Signs/Intake and Output Vital Signs (last 24 hours): Temp Pulse Resp BP Pulse Ox 98.0 F 69 20 166/89 H 98 07/03/16 07:30 07/03/16 07:30 07/03/16 07:30 07/03/16 07:30 07/03/16 07:30 Intake and Output: 07/03/16 07/03/16 06:59 18:59 Intake Total 240 Balance 240 - Medications Medications: Current Medications Acetaminophen (Tylenol 325mg Tab) 650 mg PO Q4H PRN PRN Reason: Pain, Mild (1-3) Last Admin: 07/03/16 08:26 Dose: 650 mg Albuterol/Ipratropium (Duoneb 3 Mg/0.5 Mg (3 Ml) Ud) 3 ml IH [id number] [facility] Last Admin: 07/03/16 13:41 Dose: 3 ml Albuterol/Ipratropium (Duoneb 3 Mg/0.5 Mg (3 Ml) Ud) 3 ml IH Q2H PRN PRN Reason: Shortness of Breath Alprazolam (Xanax) 0.5 mg PO TID RENE PRN Reason: Protocol Last Admin: 07/03/16 15:27 Dose: 0.5 mg Betamethasone/Clotrimazole (Lotrisone) 1 gm TOP BID [facility] Last Admin: 07/03/16 09:21 Dose: Not Given Budesonide (Pulmicort Respules) 0.5 mg IH [id number] [facility] Last Admin: 07/03/16 07:53 Dose: 0.5 mg Cyclobenzaprine HCl (Flexeril) 10 mg PO HS [facility] Last Admin: 07/02/16 21:35 Dose: 10 mg Doxycycline Hyclate (Doryx) 100 mg PO Q12 RENE PRN Reason: Protocol Stop: 07/08/16 22:01 Last Admin: 07/03/16 09:30 Dose: 100 mg Gabapentin (Neurontin) 300 mg PO BID RENE PRN Reason: Protocol Last Admin: 07/03/16 09:30 Dose: 300 mg Guaifenesin (Robitussin) 100 mg PO Q4H PRN PRN Reason: Cough Last Admin: 07/02/16 03:28 Dose: 100 mg Hydromorphone HCl (Dilaudid) 1 mg IVP Q4H PRN PRN Reason: Pain, moderate (4-7) Last Admin: 07/03/16 12:09 Dose: 1 mg Cefepime HCl (Maxipime 1gm) 1 gm in 100 mls @ 100 mls/hr IVPB Q8 RENE PRN Reason: Protocol Stop: 07/08/16 22:01 Last Admin: 07/03/16 15:27 Dose: 100 mls/hr Pantoprazole Sodium (Protonix Ec Tab) 40 mg PO 0630 RENE Last Admin: 07/03/16 05:41 Dose: 40 mg Paroxetine HCl (Paxil) 40 mg PO DAILY [facility] Last Admin: 07/03/16 09:30 Dose: 40 mg Prednisone (Prednisone Tab) 20 mg PO DAILY [facility] Last Admin: 07/03/16 09:30 Dose: 20 mg Quetiapine Fumarate (Seroquel) 150 mg PO HS RENE PRN Reason: Protocol Last Admin: 07/02/16 21:35 Dose: 150 mg - Labs Labs: 07/03/16 06:00 07/03/16 06:00 - Constitutional Appears: Non-toxic, No Acute Distress - Head Exam Head Exam: NORMAL INSPECTION - Neck Exam Neck Exam: absent: Lymphadenopathy, Meningismus - Respiratory Exam Respiratory Exam: Decreased Breath Sounds - Cardiovascular Exam Cardiovascular Exam: +S1, +S2 - GI/Abdominal Exam GI & Abdominal Exam: Soft. absent: Tenderness Assessment and Plan - Assessment and Plan (Free Text) Plan: Assessment severe sepsis due to right lower lobe healthcare-associated pneumonia, clinically improving history of urinary tract infection with E. coli history of bilateral hospital-acquired pneumonia Rheumatoid arthritis on Humira and Methotrexate COPD depression anxiety coronary artery disease Plan continue Doxycycline and Cefepime pending blood cx (day 3) to complete a 4-7 day course of antibiotics - when ready for discharge, she can be switched to PO Levaquin to complete the course of therapy - QTc is checked and it is 438 ms which is normal Will continue to monitor clinically while the patient is in the hospital
[2016-07-03] MEDS ORDERED: ACETAMINOPHEN 650 MG PO PRN (16:52)
[2016-07-03] MEDS ORDERED: ALBUTEROL IH PRN (16:52)
[2016-07-03] MEDS ORDERED: IPRATROPIUM IH SCH (17:00)
[2016-07-03] MEDS ORDERED: ALBUTEROL IH SCH (17:00)
[2016-07-03 17:11] VITALS: BP 126/87; PULSE 75; TEMP 98; O2SAT 91
--- NOTE | 2016-07-03 17:30 | DS ---
SUBJECTIVE: The patient is feeling much better. The patient admitted for severe low back pain and exacerbation of COPD. She denies any cough or shortness of breath. Her pain improved with present pain medication. She is ambulatory. Her diarrhea resolved. PHYSICAL EXAMINATION ON DISCHARGE: VITAL SIGNS: Stable, temperature 98, pulse 69, blood pressure 166/80, respiratory rate 20, and oxygen saturation is 98%. GENERAL: The patient is alert, awake, oriented. HEENT: Head is normocephalic, atraumatic. Oral mucosa is moist. NECK: Supple. LUNGS: With decreased breath sounds, but clear to auscultation. HEART: With regular rhythm, rate of 80 per minute. ABDOMEN: Soft, nontender, nondistended. EXTREMITIES: With no edema. There is still tenderness in the lower lumbar spine. NEUROLOGICAL: Normal. DIAGNOSTIC TESTS: This morning, CBC stable with WBC 11.1, hemoglobin stable at 9.6, platelet count 372,000. Chemistry with normal electrolytes. Her BUN is 29 , creatinine 0.9. Liver enzymes are normal. Her repeated procalcitonin is negative. Her blood cultures after 48 hours are negative. Stool for C. diff is negative and urine culture showed E. coli more than 100,000, sensitive to all antibiotics. ASSESSMENT: 1. Exacerbation of chronic obstructive pulmonary disease with negative repeated chest x-ray, clinically improved. 2. Urinary tract infection with Escherichia coli in urine culture. 3. Severe lumbar back pain with history of recent compression fracture and severe osteoarthritis on x-ray. 4. Severe rheumatoid arthritis. 5. Anemia of chronic disease. 6. Bipolar disorder with depression. PLAN OF TREATMENT: The patient will be discharged home today. Will continue antibiotic Levaquin as instructed by infectious disease specialist at 500 mg daily for 7 days. The patient will resume all chronic medications, which are prednisone 10 mg daily, pantoprazole 40 mg daily, Seroquel 150 mg at night, paroxetine 40 mg daily, alprazolam 0.25 mg 3 times a day, methotrexate 2.5 mg 6 tablets once a week, albuterol through nebulizer 3 times a day. The patient was advised to follow up with pain management. The patient will continue Tylenol for pain and gabapentin 300 mg at night. We will keep the prescription for Percocet pain medication to take 1 tablet in the morning and at night to be distributed by her daughter. Follow up with Dr. Gaspar on Friday and follow up with primary care doctor next week. Consuelo Powers MD cc: [id number] TT: 07/03/2016 17:29:37 Confirmation # [id number] Dictation # [id number] ln [id number]
[2016-07-03] MEDS ORDERED: GABAPENTIN 600 MG PO SCH (18:00)
[2016-07-03] MEDS ORDERED: Non Formulary Medication (Alprazolam [Xanax] 0.5 MG) PO SCH (18:00)
[2016-07-03] MEDS ORDERED: QUETIAPINE 150 MG PO SCH (22:00)
[2016-07-04] MEDS ORDERED: PANTOPRAZOLE 40 MG PO SCH (06:30)
[2016-07-04] MEDS ORDERED: levoFLOXacin 500 MG TAB PO SCH (10:00)
[2016-07-04] MEDS ORDERED: PREDNISONE 10 MG PO SCH (10:00)
[2016-07-04] MEDS ORDERED: Non Formulary Medication (Simvastatin [Simvastatin] 20 MG) PO SCH (10:00)
[2016-07-04] MEDS ORDERED: FOLIC ACID 1 MG PO SCH (10:00)
[2016-07-04] MEDS ORDERED: PAROXETINE 40 MG PO SCH (10:00)
--- NOTE | 2016-07-04 14:43 | PQF SEPSIS ---
This form is a permanent part of the medical record Dr. Mi, ID noted "severe sepsis due to right lower lobe heathcare-associated pneumonia" . Please verify if Sepsis and pneumonia are present on admission. Clarification of your documentation is requested to better reflect the severity of illness and intensity of treatment of your patient. Indicators present [] Temp < 96.8 or > 100.4 [X] WBC count > 12,000/mm3 or <000/mm3 or 10% immature neutrophils [] Heart Rate > 90 [] Respiratory Rate > 20 [] Fever or hypothermia [] Chills [] Positive blood cultures [] Hypotension [] Metabolic acidosis (Elevated lactate level, anion gap or reduced blood pH) [] Acute confusion /Altered Mental Status [] Shock [] Other: [] Location in the medical record that reflects the above clinical findings: LABORATORY Consult and progress notes. Treatment Provided: [x] PHYSICIAN'S RESPONSE Based on your medical judgment of the clinical indicators outlined above, are you treating this patient for a known or suspected: [] Sepsis / Septicemia Please specify organism if known [] () Pneumonia [] SIRS (Systemic Inflammatory Response Syndrome) [] Severe Sepsis (Sepsis with Associated Organ Dysfunction) [] Fever of Unknown Origin [x] Other, please indicate: URINARY TRACT INFECTION [] If Unable to Determine, please check the box, sign and date. Present On Admission (POA) Indicator: [x] Present at the time of admission [] Not present at the time of admission [] Clinically Undetermined In responding to this query, please exercise your independent professional judgment. The fact that a question is asked does not imply that any particular answer is desired or expected. Thank you for your clarification on this documentation. If you have any questions please call:[ ] * Thank you, [x ] Kimberly dental mechanic ALIZA
[2016-07-10] MEDS ORDERED: METHOTREXATE 12.5 MG PO SCH (10:00)
== END 2016-07-03 19:17 | disposition home or self-care (01) | DRG 191 ==
LOC: ED 17:34 → 5RSO 21:20 → ERH 22:08 → 5RSO 23:19
PROVIDERS: ADMIT Family Medicine; ATTEND Family Medicine
PROC: 3E0F7GC Introduction of Other Therapeutic Substance into Respiratory Tract, Via Natural or Artificial Opening (ICD-10-PCS; principal; 2016-07-01)
DX: J44.1 Chronic obstructive pulmonary disease with (acute) exacerbation (principal); N39.0 Urinary tract infection, site not specified; D63.8 Anemia in other chronic diseases classified elsewhere; I10 Essential (primary) hypertension; M06.9 Rheumatoid arthritis, unspecified; G89.4 Chronic pain syndrome; F31.9 Bipolar disorder, unspecified; F17.210 Nicotine dependence, cigarettes, uncomplicated; E78.5 Hyperlipidemia, unspecified; J20.9 Acute bronchitis, unspecified; J44.0 Chronic obstructive pulmonary disease with (acute) lower respiratory infection; M54.5 Low back pain; I25.10 Atherosclerotic heart disease of native coronary artery without angina pectoris; F41.9 Anxiety disorder, unspecified; M51.36 Other intervertebral disc degeneration, lumbar region; M47.816 Spondylosis without myelopathy or radiculopathy, lumbar region; Z96.641 Presence of right artificial hip joint; Z86.010 Personal history of colon polyps; Z87.440 Personal history of urinary (tract) infections; Z79.899 Other long term (current) drug therapy